=== PATIENT | male | born 1995 | race Caucasian/White ===

== ENCOUNTER 2020-11-26 12:12 | Observation (INO) ==
[2020-11-26 12:46] LABS: Appearance Urine Clear (Clear); Bilirubin Urine Negative (Negative); Blood Urine Negative (Negative); Color Urine Yellow; Glucose Urine UA Negative (Negative); Ketones Urine Trace (Negative); Leukocyte Esterase Urine Negative (Negative); Nitrite Urine Negative (Negative); Protein Urine Negative (Negative); Specific Gravity Urine 1.017 (1.000-1.030); Urobilinogen Urine Negative (Negative); pH Urine 5.5 (4.5-7.5)
--- NOTE | 2020-11-26 12:48 | Emergency Department Note ---
Impression & Plan Anxiety and depression, Tylenol overdose ED Provider Note Provider: Marlon Wu MD DATE OF SERVICE: 11/26/2020 CHIEF COMPLAINT: Overdose HISTORY OF PRESENT ILLNESS: Patient is a 25-year-old gentleman presenting with his mother today reporting that he attempted to harm himself and overdose on Tylenol. Patient states he is a history of anxiety depression and when he was approximately 15 he attempted to commit suicide and overdose. Patient was at the hospital that time and did have psychiatry evaluation. Since then he is not currently having any outpatient psychiatric providers or counselors. Not currently on medications. Patient states has been some stress related to his job as well as his father who has schizophrenia and was recently jailed. Patient states he became very anxious this morning at around 10 to 10:15 AM took between 15 to 25 tablets of extra strength 500 mg Tylenol. States he soon after began to request this and texted his mother who came to assist him. He states he tried to induce vomiting but really was not successful with this. Patient denies vomiting up any of the tablets to his knowledge. Patient denies taking anything else. He denies use of drugs or alcohol today but states he uses marijuana occasionally and did have a beer last night. Patient reports that he is having some pain in the left side of his upper abdomen and lower chest he t hinks some of it may be related to from him retching earlier. He has had a little bit of nausea at times but minimal at this point. Patient denies again taking any other ingestions today or trying to harm self in any other manner. States he does not want to at this time or have liver failure which is why he is here. REVIEW OF SYSTEMS: A total of 10 review of systems was obtained and negative except as stated above in the HPI. 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 NECK: Trachea midline. LUNGS: Airway patent. No retractions. Breath sounds clear with good air entry bilaterally. HEART: Regular rate and rhythm. No chest wall tenderness ABDOMEN: Soft and non-tender, without guarding or rebound. SKIN: Acyanotic, warm, dry, without rashes EXTREMITIES: Without swelling, tenderness or deformity NEUROLOGICAL: No focal deficits. No aphasia. No facial droop or slurred speech. Ambulatory. Psych: Patient reports some anxiety and mild depression at times. Denies suicidal ideation at the current time but states earlier he was feeling this way. Denies any homicidal ideation. EK bpm normal sinus rhythm with sinus arrhythmia. No PVC. No acute ST segment elevation. QTc 388. Patient's laboratory studies and imaging reviewed. Differential includes Mood disorder, infection, hypoglycemia, electrolyte abnormalities, cardiac sources, intracerebral event, toxicologic, trauma, neurologic, as well as other pathologies. IMPRESSION/MEDICAL DECISION MAKING: Patient presents with anxiety depression and intent to harm self by taking Tylenol overdose. Little bit of left upper quadrant pain. I doubt appendicitis, perforation, or cholecystitis. Basic labs obtained. Initial Tylenol and 4-hour postingestion Tylenol was ordered. Will need psychiatric evaluation when medical clear but do have concern given significant amount of Tylenol taken for true Tylenol overdose. Initial blood work is reassuring without liver dysfunction noted. An elevated acetaminophen level is noted however a timed 4-hour level from the time of ingestion to use the Tylenol overdose monogram to determine if treatment is needed. Covid test was negative. Discussed with [facility] case and testing results. They do not recommend NAC as the patient is below the treatment level based on timing of his ingestion and the Tylenol levels. Patient without evidence of liver dysfunction at this time although does have some nausea. Given some Zofran. Continue to have intermittent episod es of some nausea and some mild left upper quadrant tenderness. Given some Pepcid and bit of IV fluid. Given his symptoms feel that medical observation overnight would be appropriate for symptom control and further psychiatric consultation and possible admission once he is stable from the standpoint. Patient is agreeable with this and the hospitalist was contacted. DIAGNOSIS: Intentional attempted Tylenol overdose, anxiety and depression DISPOSITION: Hospitalist will evaluate Patient was agreeable with this plan. Past Med/Surg History Medical History No pertinent past medical history Surgical History No pertinent past surgical history Family History (Updated 11/26/20 @ 17:20 by Annmarie Lujan PA-C) Father Bipolar disorder Schizophrenia Mother Alive and well Social History (Updated 11/26/20 @ 17:21 by Annmarie Lujan PA-C) Smoking Status: Never smoker Hx Alcohol Use: Yes Alcohol type: beer Alcohol Intake Frequency: 2-4 x/Month Hx Substance Use: Yes Non-Prescribed Medications: Marijuana Last Used Substance: Days (ago) Preferred Language: Belizean marital status: Single current occupational status: employed current occupation: [employer] Feels Safe at Home: Yes Allergies Allergies Allergy/AdvReac Type Severity Reaction Status Date / Time amoxicillin Allergy Mild Unknown Verified 11/26/20 12:43 Penicillins Allergy Unknown UNKNOWN Verified 11/26/20 12:43 Home Meds Home Medications Medication Instructions Recorded Confirmed No Known Home Medications 11/26/20 11/26/20 Results & Data (ED) Vital Signs Vital Signs - 24 hr 11/26/20 12:15 11/26/20 14:15 11/26/20 16:15 Temperature 36.5 C Temperature Source Temporal Artery Scan Pulse Rate 109 H Pulse Rate [Finger] 79 80 Pulse Rhythm Regular Pulse Rhythm [Finger] Regular Pulse Strength Normal Pulse Strength [Finger] Respiratory Rate 20 14 18 Respiratory Effort / Characteristics Non-Labored Spontaneous Non-Labored Respiratory Depth Normal Normal Respiratory Pattern Regular Regular Blood Pressure 147/91 H Blood Pressure [Left Arm] 127/67 138/71 Blood Pressure Mean 109 Blood Pressure Mean [Left Arm] 87 93 Blood Pressure Position Sitting Blood Pressure Position [Left Arm] Pulse Oximetry 97 97 97 Oxygen Delivery Method Room Air Room Air Room Air Sepsis Recent Fever Within 48 Hours No Sepsis New/Unexplained Change in Mental Status No Sepsis Action Taken by Nursing No Action Required 11/26/20 18:00 Temperature 36.8 C Temperature Source Oral Pulse Rate Pulse Rate [Finger] 83 Pulse Rhythm Pulse Rhythm [Finger] Regular Pulse Strength Pulse Strength [Finger] Normal Respiratory Rate 17 Respiratory Effort / Characteristics Non-Labored Respiratory Depth Normal Respiratory Pattern Regular Blood Pressure Blood Pressure [Left Arm] 139/72 Blood Pressure Mean Blood Pressure Mean [Left Arm] 94 Blood Pressure Position Blood Pressure Position [Left Arm] Sitting Pulse Oximetry 100 Oxygen Delivery Method Room Air Sepsis Recent Fever Within 48 Hours Sepsis New/Unexplained Change in Mental Status Sepsis Action Taken by Nursing Laboratory Data Result diagrams: 11/26/20 12:05 10/21/21 12:50 Lab Results 11/26/20 11/26/20 11/26/20 Range/Units 12:05 12:30 12:30 WBC 7.10 (4.8-10.8) K/uL RBC 5.20 (4.7-6.1) M/uL Hgb 16.5 (14.0-18.0) g/dL Hct 45.5 (42-52) % MCV 87.5 (80-100) fL MCH 31.7 (25-34) pg MCHC 36.3 H (32-36) g/dL RDW Std Deviation 39.2 (36.4-46.3) fL RDW Coeff of Avani 12.2 (11.5-14.5) % Plt Count 272 (130-400) K/uL MPV 10.0 (7.4-10.4) fL Immature Gran % (Auto) 0.3 % Neut % (Auto) 70.6 % Lymph % (Auto) 22.4 % Prentiss % (Auto) 4.9 % Eos % (Auto) 1.7 % Baso % (Auto) 0.1 % Neut # (Auto) 5.01 (1.4-6.5) K/uL Lymph # (Auto) 1.59 (1.2-3.4) K/uL Prentiss # (Auto) 0.35 (0.11-0.59) K/uL Eos # (Auto) 0.12 (0-0.5) K/uL Baso # (Auto) 0.01 (0-0.2) K/uL Immature Gran # (Auto) 0.02 (0.00-0.02) K/uL PT (9.0-12.0) Seconds INR (0.9-1.1) Sodium (136-145) mmol/L Potassium (3.5-5.1) mmol/L Chloride (98-107) mmol/L Carbon Dioxide (21-32) mmol/L Anion Gap (3-11) BUN (7-18) mg/dl Creatinine (0.6-1.4) mg/dl Est Cr Clr Drug Dosing ml/min Est GFR ( Amer) ml/min Est GFR (Non-Af Amer) ml/min BUN/Creatinine Ratio (10-20) Glucose (70-99) mg/dl Calcium (8.5-10.1) mg/dl Total Bilirubin (0.2-1) mg/dl AST (15-37) U/L ALT (12-78) U/L Alkaline Phosphatase (45-117) U/L Total Creatine Kinase (39-308) U/L Total Protein (6.4-8.2) gm/dl Albumin (3.4-5.0) gm/dl Globulin (2.5-4.0) gm/dl Albumin/Globulin Ratio (0.9-2) TSH (0.300-4.500) uIu/ml Urine Color Yellow Urine Appearance Clear (Clear) Urine pH 5.5 (4.5-7.5) Ur Specific Eugene 1.017 (1.000-1.030) Urine Protein Negative (Negative) Urine Glucose (UA) Negative (Negative) Urine Ketones Trace H (Negative) Urine Blood Negative (Negative) Urine Nitrite Negative (Negative) Urine Bilirubin Negative (Negative) Urine Urobilinogen Negative (Negative) Ur Leukocyte Esterase Negative (Negative) Salicylates (2.8-20) mg/dl Urine Opiates Screen Neg (Neg) Ur Methadone, Qual Neg (Neg) Acetaminophen (10-30) ug/ml Urine Barbiturates Neg (Neg) Ur Phencyclidine (PCP) Neg (Neg) U Amphetamin/Meth Scrn Neg (Neg) MDMA (Ecstasy) Screen Neg (Neg) U Benzodiazepines Scrn Neg (Neg) Ur Cocaine Metabolite Neg (Neg) U Marijuana (THC) Screen Pos H (Neg) Ethyl Alcohol mg/dL (0-3) mg/dl COVID-19 Eval Order SARS-CoV-2 (PCR) (Negative) 11/26/20 11/26/20 11/26/20 Range/Units 12:50 12:50 13:05 WBC (4.8-10.8) K/uL RBC (4.7-6.1) M/uL Hgb (14.0-18.0) g/dL Hct (42-52) % MCV (80-100) fL MCH (25-34) pg MCHC (32-36) g/dL RDW Std Deviation (36.4-46.3) fL RDW Coeff of Avani (11.5-14.5) % Plt Count (130-400) K/uL MPV (7.4-10.4) fL Immature Gran % (Auto) % Neut % (Auto) % Lymph % (Auto) % Prentiss % (Auto) % Eos % (Auto) % Baso % (Auto) % Neut # (Auto) (1.4-6.5) K/uL Lymph # (Auto) (1.2-3.4) K/uL Prentiss # (Auto) (0.11-0.59) K/uL Eos # (Auto) (0-0.5) K/uL Baso # (Auto) (0-0.2) K/uL Immature Gran # (Auto) (0.00-0.02) K/uL PT (9.0-12.0) Seconds INR (0.9-1.1) Sodium 137 (136-145) mmol/L Potassium 3.8 (3.5-5.1) mmol/L Chloride 106 (98-107) mmol/L Carbon Dioxide 24 (21-32) mmol/L Anion Gap 7.0 (3-11) BUN 14 (7-18) mg/dl Creatinine 1.03 (0.6-1.4) mg/dl Est Cr Clr Drug Dosing 129.7 ml/min Est GFR ( Amer) 118.1 ml/min Est GFR (Non-Af Amer) 101.9 ml/min BUN/Creatinine Ratio 13.2 (10-20) Glucose 111 H (70-99) mg/dl Calcium 9.4 (8.5-10.1) mg/dl Total Bilirubin 1.0 (0.2-1) mg/dl AST 17 (15-37) U/L ALT 36 (12-78) U/L Alkaline Phosphatase 54 (45-117) U/L Total Creatine Kinase 87 (39-308) U/L Total Protein 7.7 (6.4-8.2) gm/dl Albumin 4.4 (3.4-5.0) gm/dl Globulin 3.3 (2.5-4.0) gm/dl Albumin/Globulin Ratio 1.3 (0.9-2) TSH 0.413 (0.300-4.500) uIu/ml Urine Color Urine Appearance (Clear) Urine pH (4.5-7.5) Ur Specific Eugene (1.000-1.030) Urine Protein (Negative) Urine Glucose (UA) (Negative) Urine Ketones (Negative) Urine Blood (Negative) Urine Nitrite (Negative) Urine Bilirubin (Negative) Urine Urobilinogen (Negative) Ur Leukocyte Esterase (Negative) Salicylates 2.4 L (2.8-20) mg/dl Urine Opiates Screen (Neg) Ur Methadone, Qual (Neg) Acetaminophen 59 H (10-30) ug/ml Urine Barbiturates (Neg) Ur Phencyclidine (PCP) (Neg) U Amphetamin/Meth Scrn (Neg) MDMA (Ecstasy) Screen (Neg) U Benzodiazepines Scrn (Neg) Ur Cocaine Metabolite (Neg) U Marijuana (THC) Screen (Neg) Ethyl Alcohol mg/dL (0-3) mg/dl COVID-19 Eval Order Covid19 at [facility] SARS-CoV-2 (PCR) (Negative) 11/26/20 11/26/20 11/26/20 Range/Units 13:05 13:06 14:15 WBC (4.8-10.8) K/uL RBC (4.7-6.1) M/uL Hgb (14.0-18.0) g/dL Hct (42-52) % MCV (80-100) fL MCH (25-34) pg MCHC (32-36) g/dL RDW Std Deviation (36.4-46.3) fL RDW Coeff of Avani (11.5-14.5) % Plt Count (130-400) K/uL MPV (7.4-10.4) fL Immature Gran % (Auto) % Neut % (Auto) % Lymph % (Auto) % Prentiss % (Auto) % Eos % (Auto) % Baso % (Auto) % Neut # (Auto) (1.4-6.5) K/uL Lymph # (Auto) (1.2-3.4) K/uL Prentiss # (Auto) (0.11-0.59) K/uL Eos # (Auto) (0-0.5) K/uL Baso # (Auto) (0-0.2) K/uL Immature Gran # (Auto) (0.00-0.02) K/uL PT 10.8 (9.0-12.0) Seconds INR 1.1 (0.9-1.1) Sodium (136-145) mmol/L Potassium (3.5-5.1) mmol/L Chloride (98-107) mmol/L Carbon Dioxide (21-32) mmol/L Anion Gap (3-11) BUN (7-18) mg/dl Creatinine (0.6-1.4) mg/dl Est Cr Clr Drug Dosing ml/min Est GFR ( Amer) ml/min Est GFR (Non-Af Amer) ml/min BUN/Creatinine Ratio (10-20) Glucose (70-99) mg/dl Calcium (8.5-10.1) mg/dl Total Bilirubin (0.2-1) mg/dl AST (15-37) U/L ALT (12-78) U/L Alkaline Phosphatase (45-117) U/L Total Creatine Kinase (39-308) U/L Total Protein (6.4-8.2) gm/dl Albumin (3.4-5.0) gm/dl Globulin (2.5-4.0) gm/dl Albumin/Globulin Ratio (0.9-2) TSH (0.300-4.500) uIu/ml Urine Color Urine Appearance (Clear) Urine pH (4.5-7.5) Ur Specific Eugene (1.000-1.030) Urine Protein (Negative) Urine Glucose (UA) (Negative) Urine Ketones (Negative) Urine Blood (Negative) Urine Nitrite (Negative) Urine Bilirubin (Negative) Urine Urobilinogen (Negative) Ur Leukocyte Esterase (Negative) Salicylates (2.8-20) mg/dl Urine Opiates Screen (Neg) Ur Methadone, Qual (Neg) Acetaminophen (10-30) ug/ml Urine Barbiturates (Neg) Ur Phencyclidine (PCP) (Neg) U Amphetamin/Meth Scrn (Neg) MDMA (Ecstasy) Screen (Neg) U Benzodiazepines Scrn (Neg) Ur Cocaine Metabolite (Neg) U Marijuana (THC) Screen (Neg) Ethyl Alcohol mg/dL < 3.0 (0-3) mg/dl COVID-19 Eval Order SARS-CoV-2 (PCR) NEGATIVE (Negative) 11/26/20 Range/Units 14:15 WBC (4.8-10.8) K/uL RBC (4.7-6.1) M/uL Hgb (14.0-18.0) g/dL Hct (42-52) % MCV (80-100) fL MCH (25-34) pg MCHC (32-36) g/dL RDW Std Deviation (36.4-46.3) fL RDW Coeff of Avani (11.5-14.5) % Plt Count (130-400) K/uL MPV (7.4-10.4) fL Immature Gran % (Auto) % Neut % (Auto) % Lymph % (Auto) % Prentiss % (Auto) % Eos % (Auto) % Baso % (Auto) % Neut # (Auto) (1.4-6.5) K/uL Lymph # (Auto) (1.2-3.4) K/uL Prentiss # (Auto) (0.11-0.59) K/uL Eos # (Auto) (0-0.5) K/uL Baso # (Auto) (0-0.2) K/uL Immature Gran # (Auto) (0.00-0.02) K/uL PT (9.0-12.0) Seconds INR (0.9-1.1) Sodium (136-145) mmol/L Potassium (3.5-5.1) mmol/L Chloride (98-107) mmol/L Carbon Dioxide (21-32) mmol/L Anion Gap (3-11) BUN (7-18) mg/dl Creatinine (0.6-1.4) mg/dl Est Cr Clr Drug Dosing ml/min Est GFR ( Amer) ml/min Est GFR (Non-Af Amer) ml/min BUN/Creatinine Ratio (10-20) Glucose (70-99) mg/dl Calcium (8.5-10.1) mg/dl Total Bilirubin (0.2-1) mg/dl AST (15-37) U/L ALT (12-78) U/L Alkaline Phosphatase (45-117) U/L Total Creatine Kinase (39-308) U/L Total Protein (6.4-8.2) gm/dl Albumin (3.4-5.0) gm/dl Globulin (2.5-4.0) gm/dl Albumin/Globulin Ratio (0.9-2) TSH (0.300-4.500) uIu/ml Urine Color Urine Appearance (Clear) Urine pH (4.5-7.5) Ur Specific Eugene (1.000-1.030) Urine Protein (Negative) Urine Glucose (UA) (Negative) Urine Ketones (Negative) Urine Blood (Negative) Urine Nitrite (Negative) Urine Bilirubin (Negative) Urine Urobilinogen (Negative) Ur Leukocyte Esterase (Negative) Salicylates (2.8-20) mg/dl Urine Opiates Screen (Neg) Ur Methadone, Qual (Neg) Acetaminophen 40 H (10-30) ug/ml Urine Barbiturates (Neg) Ur Phencyclidine (PCP) (Neg) U Amphetamin/Meth Scrn (Neg) MDMA (Ecstasy) Screen (Neg) U Benzodiazepines Scrn (Neg) Ur Cocaine Metabolite (Neg) U Marijuana (THC) Screen (Neg) Ethyl Alcohol mg/dL (0-3) mg/dl COVID-19 Eval Order SARS-CoV-2 (PCR) (Negative) Administered Medications Discontinued Medications Lactated Ringer's (Lr) 1,000 mls @ 999 mls/hr IV .[id number] ONE Stop: 11/26/20 17:36 Last Infusion: 11/26/20 18:09 Dose: 0 mls/hr Documented by: [id number] Admin: 11/26/20 16:38 Dose: 999 mls/hr Documented by: [id number] Famotidine (Pepcid 20mg Iv Push) 20 mg in 5 mls @ 2.5 mls/min IV NOW STA Stop: 11/26/20 16:38 Last Admin: 11/26/20 16:40 Dose: 2.5 mls/min Documented by: [id number] Ondansetron HCl (Ondansetron Inj 2 Mg/Ml 2 Ml Vial) 4 mg IV NOW STA Stop: 11/26/20 14:57 Last Admin: 11/26/20 15:18 Dose: 4 mg Documented by: [id number] Discharge Plan Visit Data Chief Complaint: Overdose (Intentional) Stated Complaint: TOOK 15-20 TYLENOL TOOK ON PURPOSE ED Provider: Marlon Wu Discharge Problem: Anxiety and depression, Tylenol overdose Patient Disposition: Admitted As Inpatient Discharge Instructions Interventions: ED Discharge Assessment Last Done: 11/26/20 18:17 Forms Stand Alone Forms: [facility], Suicide Prevention Resources Prescriptions Prescriptions: No Action No Known Home Medications RF: 0 Referrals Referrals: Miguel Horton MD [Primary Care Provider] - Discharge Problem: Tylenol overdose Qualifiers: Encounter type: initial encounter Injury intent: intentional self-harm Qualified Code(s): T39.1X2A - Poisoning by 4-Aminophenol derivatives, intentional self-harm, initial encounter
[2020-11-26 13:15] LABS: Basophils # (auto) 0.01 K/uL (0-0.2); Basophils % (auto) 0.1 %; Eosinophils # (auto) 0.12 K/uL (0-0.5); Eosinophils % (auto) 1.7 %; Hematocrit (blood only) 45.5 % (42-52); Hemoglobin 16.5 g/dL (14.0-18.0); Immature Granulocytes # (auto) 0.02 K/uL (0.00-0.02); Immature Granulocytes % (auto) 0.3 %; Lymphocytes # (auto) 1.59 K/uL (1.2-3.4); Lymphocytes % (auto) 22.4 %; Mean Corpuscular Hemoglobin 31.7 pg (25-34); Mean Corpuscular Hgb Conc 36.3 g/dL (32-36); Mean Corpuscular Volume 87.5 fL (80-100); Monocytes # (auto) 0.35 K/uL (0.11-0.59); Monocytes % (auto) 4.9 %; Neutrophils # (auto) 5.01 K/uL (1.4-6.5); Neutrophils % (auto) 70.6 %; Platelet Count 272 K/uL (130-400); RDW Coefficient of Variation 12.2 % (11.5-14.5); RDW Standard Deviation 39.2 fL (36.4-46.3)
[2020-11-26 13:17] LABS: Amphetamines+Metham, Urine Neg (Neg); Barbiturates, Urine Neg (Neg); Benzodiazepine, Urine Neg (Neg); Cocaine, Urine Neg (Neg); MDMA (Ecstacy), Urine Neg (Neg); Methadone, Urine Neg (Neg); Opiate, Urine Neg (Neg); Phencyclidine, Urine Neg (Neg)
[2020-11-26 13:33] LABS: Albumin Level 4.4 gm/dl (3.4-5.0); BUN Creatinine Ratio 13.2 (10-20); Calcium 9.4 mg/dl (8.5-10.1); Creatinine Clr Calc Pharmacy 129.7 ml/min; Est GFR (African American) 118.1 ml/min; Est GFR (Non-African American) 101.9 ml/min; Potassium 3.8 mmol/L (3.5-5.1)
[2020-11-26 13:36] LABS: Salicylate 2.4 mg/dl (2.8-20)
[2020-11-26 13:49] LABS: Albumin Globulin Ratio 1.3 (0.9-2); Globulin 3.3 gm/dl (2.5-4.0); Thyroid Stimulating Hormone 0.413 uIu/ml (0.300-4.500); Total Protein 7.7 gm/dl (6.4-8.2)
[2020-11-26 14:37] LABS: INR 1.1 (0.9-1.1); Prothrombin Time 10.8 Seconds (9.0-12.0)
[2020-11-26] MEDS ORDERED: ONDANSETRON INJ 2 MG/ML 2 ML VIAL IV STA (14:56)
--- NOTE | 2020-11-26 15:26 | Electrocardiogram Report ---
Test Reason : Blood Pressure : / mmHG Vent. Rate : 074 BPM Atrial Rate : 074 BPM P-R Int : 118 ms QRS Dur : 094 ms QT Int : 350 ms P-R-T Axes : -02 062 018 degrees QTc Int : 388 ms Normal sinus rhythm with sinus arrhythmia Normal ECG When compared with ECG of 29-AUG-2012 21:32, No significant change Confirmed by Sterling Gallagher ([id number]) on 11/26/2020 3:26:16 PM Referred By: REFERRED SELF Confirmed By:Sterling Gallagher
[2020-11-26] MEDS ORDERED: LACTATED RINGER'S 1,000 ML IV ONE (16:36)
[2020-11-26] MEDS ORDERED: ONDANSETRON INJ 2 MG/ML 2 ML VIAL IV PRN ×2 (16:36→19:10)
[2020-11-26] MEDS ORDERED: FAMOTIDINE 20MG IV PUSH 20 MG/5 ML SYR IV STA (16:37)
--- NOTE | 2020-11-26 17:26 | History & Physical Report ---
Date of Service November 26, 2020 Assessment & Plan (1) Tylenol overdose: (2) Anxiety and depression: (3) PTSD (post-traumatic stress disorder): Plan: This is a 25-year-old male who is medically otherwise healthy who has anxiety, depression and PTSD who presented to ER after ingesting 15-20 extra strength Tylenol tablets in the form of trying to harm self due to anxiety over her father who is a schizophrenic and is to be incarcerated. Case was discussed with poison control and ED provider Dr. Wu. 4-hour acetaminophen level was 40, LFTs WNL and it was felt that NAC was not required at this time. Admit to med telemetry Gentle IV hydration at 115 cc/h times additional 2 L IV Pepcid 20 mg twice daily LFTs in a.m. Suicide precautions One-to-one Consult psychiatry Currently patient denies intent to harm self or others, previous hospitalization at age 15 secondary to suicide attempt Does not follow with outpatient psychiatrist and is currently not on any prescription medications, which is a follow with outpatient counselor DVT prophylaxis: Not required given age, encourage ambulation Dispo: Med telemetry, will need psych evaluation to determine need for further treatment Full code PCP: Clifford Patient was seen and examined in collaboration with Dr. Allen, please see addendum History of Present Illness Chief Complaint: Ingestion of 15-20 Tylenol tablets prior to arrival. Primary Care Provider: Miguel Horton MD This is a 25-year-old male who has significant history of depression, anxiety, PTSD who presents to ED secondary to ingestion of 15-20 extra strength Tylenol tablets prior to arrival. This occurred at approximately 10 to 10:15 AM. He states he has dealt with anxiety his whole life secondary to his father being schizophrenia. His father recently is going to be incarcerated and has also been saying he wishes to . This has made the patient extremely anxious and today he developed impulsive behavior and ingested Tylenol. At that time he did admit to wanting to hurt himself to make his anxiety go away, but currently denies any suicidal thoughts. He denies ever having this happen in the past. He did have a prior suicide attempt at 15. He does not take any medications for antidepressants but wishes to establish with psychologist for therapy as an outpatient. Currently he has abdominal pain 6/10 and mild nausea. He did have one episode of vomiting in ED. He was hoping after taking Tylenol he would be able to make himself vomit to prevent himself him coming to the ER. He denies any recent illness, fever, chills, sweats, lightheadedness, dizziness, chest pain, shortness breath, cough, URI symptoms, change in bowel or urinary habits. He does admit to smoking marijuana, last use yesterday. He does not do any other street drugs. He does drink alcohol occasionally, 2-4 times a month. 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 At this current time he denies any suicidal or homicidal ideations. In ED patient remained hemodynamically stable. His LFTs were unremarkable. He did have elevated acetaminophen level at 40. He also tested positive for marijuana. ED provider Dr. Payne spoke with poison control and felt that NAC was not required. It is recommended he be admitted to hospital for further observation, IV hydration, antiemetics and repeat of LFTs. Allergies Allergy/AdvReac Type Severity Reaction Status Date / Time amoxicillin Allergy Mild Unknown Verified 11/26/20 12:43 Penicillins Allergy Unknown UNKNOWN Verified 11/26/20 12:43 Home Medications Medication Instructions Recorded Confirmed Type No Known Home Medications 11/26/20 11/28/20 History hydroxyzine HCl 25 mg tablet 25 mg PO Q4H PRN #30 tab 11/30/20 Rx Past Med/Surg History Medical History (Updated 11/27/20 @ 16:23 by Ruby Shelby MD) MDD (major depressive disorder), recurrent episode No pertinent past medical history Surgical History No pertinent past surgical history Family History Father Bipolar disorder Schizophrenia Mother Alive and well Social History Smoking Status: Former smoker Second Hand Exposure: No; Hx Alcohol Use: Yes Alcohol type: beer Alcohol Intake Frequency: 2-4 x/Month Hx Substance Use: Yes Non-Prescribed Medications: Marijuana Last Used Substance: Unknown Preferred Language: Tunisian Communication Ability: Effective Reinforcing Steel Placer Required: No Beliefs That Will Affect Care: None marital status: Single Current Living Situation: Family current occupational status: employed current occupation: [employer] Feels Safe at Home: Yes Assistive Devices: None Review of Systems Review of Systems: All systems reviewed & are unremarkable except as noted in HPI & below Physical Exam Physical Exam: Constitutional: WD/WN, vitals as above, NAD, sitting up in bed, pleasant, conversing easily Head: Normocephalic, Atraumatic Eyes: PERRL, conjunctivae normal, anicteric sclerae ENMT: external ear and nose normal, oropharynx normal Neck: trachea midline, no thyromegaly normal visual inspection Respiratory: normal respiratory effort, lungs clear to auscultation, no wheeze, rales, rhonchi. Normal insp/exp effort, no accessory muscle use Cardiovascular: RRR, no murmur, no edema Vessels: no JVD or carotid bruit Chest: normal inspection of chest Abdomen: normal bowel sounds, soft, nontender, no hepatosplenomegaly Musculoskeletal: no cyanosis or clubbing, extremities motor strength 5/5 Skin: no rashes, warm and dry normal turgor Neurologic: PERRL, EOMI, accommodation nl, no face palsy, no dysarthria CN's II-XI intact bilaterally and moves all extremities Psychiatric: A+Ox3, euthymic affect Lymphatic: no cervical or axillary lymphadenopathy : deferred Results & Data Results & Data ([facility]) Vital Signs (Past 12 Hours) Vital Signs Temp Pulse Pulse Resp BP BP Pulse Ox 11/26/20 16:15 80 18 138/71 97 11/26/20 14:15 79 14 127/67 97 11/26/20 12:15 36.5 C 109 H 20 147/91 H 97 Medications Administered Medication List Lactated Ringer's (Lr) 1,000 mls @ 999 mls/hr IV .Q1H1M ONE Stop: 11/26/20 17:36 Last Admin: 11/26/20 16:38 Dose: 999 mls/hr Documented by: [id number] Discontinued Medications Famotidine (Pepcid 20mg Iv Push) 20 mg in 5 mls @ 2.5 mls/min IV NOW STA Stop: 11/26/20 16:38 Last Admin: 11/26/20 16:40 Dose: 2.5 mls/min Documented by: [id number] Ondansetron HCl (Ondansetron Inj 2 Mg/Ml 2 Ml Vial) 4 mg IV NOW STA Stop: 11/26/20 14:57 Last Admin: 11/26/20 15:18 Dose: 4 mg Documented by: [id number] ECG Rate (beats per minute): 74 Rhythm: normal sinus and sinus with SA COVID-19 Results Results COVID-19 Adm Lab Results: RBC 4.80 M/uL (4.7-6.1) 11/27/20 WBC 9.75 K/uL (4.8-10.8) 11/27/20 Hgb 15.1 g/dL (14.0-18.0) 11/27/20 Hct 43.0 % (42-52) 11/27/20 Plt Count 244 K/uL (130-400) 11/27/20 Neutrophils (%) (Auto) 70.6 % 11/26/20 Lymphocytes (%) (Auto) 22.4 % 11/26/20 Monocytes # (Auto) 0.35 K/uL (0.11-0.59) 11/26/20 Eosinophils # (Auto) 0.12 K/uL (0-0.5) 11/26/20 Immature Granulocyte % (Auto) 0.3 % 11/26/20 Neutrophils # (Auto) 5.01 K/uL (1.4-6.5) 11/26/20 Lymphocytes # (Auto) 1.59 K/uL (1.2-3.4) 11/26/20 Monocytes # (Auto) 0.35 K/uL (0.11-0.59) 11/26/20 Eosinophils # (Auto) 0.12 K/uL (0-0.5) 11/26/20 Basophils # (Auto) 0.01 K/uL (0-0.2) 11/26/20 Immature Granulocyte # (Auto) 0.02 K/uL (0.00-0.02) 11/26/20 Na 138 mmol/L (136-145) 11/27/20 K 3.6 mmol/L (3.5-5.1) 11/27/20 Cl 109 mmol/L (98-107) H 11/27/20 CO2 24 mmol/L (21-32) 11/27/20 Anion Gap 5.0 (3-11) 11/27/20 BUN 12 mg/dl (7-18) 11/27/20 Creatinine 0.99 mg/dl (0.6-1.4) 11/27/20 BUN/Creatinine Ratio 12.2 (10-20) 11/27/20 Glucose Level 71 mg/dl (70-99) 11/27/20 Ca 8.3 mg/dl (8.5-10.1) L 11/27/20 Total Bilirubin 0.9 mg/dl (0.2-1) 11/27/20 AST/SGOT 14 U/L (15-37) L 11/27/20 ALT/SGPT 31 U/L (12-78) 11/27/20 Alkaline Phosphatase 46 U/L (45-117) 11/27/20 Total Protein 6.5 gm/dl (6.4-8.2) 11/27/20 Albumin 3.5 gm/dl (3.4-5.0) 11/27/20 Globulin 3.0 gm/dl (2.5-4.0) 11/27/20 Albumin/Globulin Ratio 1.2 (0.9-2) 11/27/20 Total CK 87 U/L (39-308) 11/26/20 INR 1.1 (0.9-1.1) 11/26/20 COVID-19 PCR NEGATIVE (Negative) 11/26/20 Code Status & VTE Plan Code Status Full Code VTE Prophylaxis Plan VTE Prophylaxis will be ordered: No Supervising Physician Co-Signing Physician Notes Intentional Tylenol overdose History of posttraumatic stress disorder History of anxiety Patient presents with overdose of Tylenol. Hemodynamically patient is doing okay. He of system is mainly negative. Continue to trend daily LFTs. Dietary services have been ordered. Continue with one-to-one sitter at bedside. Patient on maintenance IV fluids. I performed a history and physical examination of the patient on 11/26/20, including specifically H&P. I have discussed the patient's management with the advanced practitioner. Please refer to the Annmarie Lujan note for the documented findings and plan of care. (1) Tylenol overdose Encounter type: initial encounter Injury intent: intentional self-harm Qualified Code(s): T39.1X2A - Poisoning by 4-Aminophenol derivatives, intentional self-harm, initial encounter
[2020-11-26] MEDS ORDERED: IBUPROFEN 600 MG TAB PO PRN (19:10)
[2020-11-26] MEDS ORDERED: ALUMINUM/MAGNESIUM SUSP 30 ML UDC PO PRN (19:10)
[2020-11-26] MEDS ORDERED: MAGNESIUM HYDROXIDE SUSP 30 ML UDC PO PRN (19:10)
[2020-11-26] MEDS ORDERED: POLYETHYLENE (MIRALAX) 17 GM PACK PO PRN (19:10)
[2020-11-26] MEDS: SODIUM CHLORIDE 0.9% 1000ML 1,000 ML IV SCH (19:30)
[2020-11-26] MEDS: FAMOTIDINE 20 MG in SYRINGE 3 ML IV SCH (20:33)
[2020-11-27] MEDS: SODIUM CHLORIDE 0.9% 1000ML 1,000 ML IV SCH (03:30)
[2020-11-27 07:02] LABS: Hemoglobin 15.1 g/dL (14.0-18.0); Mean Corpuscular Hemoglobin 31.5 pg (25-34); Mean Corpuscular Hgb Conc 35.1 g/dL (32-36); Mean Corpuscular Volume 89.6 fL (80-100); Mean Platelet Volume 10.2 fL (7.4-10.4); Platelet Count 244 K/uL (130-400); RDW Coefficient of Variation 12.5 % (11.5-14.5); RDW Standard Deviation 40.7 fL (36.4-46.3); White Blood Count 9.75 K/uL (4.8-10.8)
[2020-11-27 07:08] LABS: Albumin Level 3.5 gm/dl (3.4-5.0); BUN Creatinine Ratio 12.2 (10-20); Calcium 8.3 mg/dl (8.5-10.1); Creatinine Clr Calc Pharmacy 134.9 ml/min; Est GFR (African American) 123.9 ml/min; Est GFR (Non-African American) 106.9 ml/min; Potassium 3.6 mmol/L (3.5-5.1)
[2020-11-27 07:11] LABS: Albumin Globulin Ratio 1.2 (0.9-2); Bilirubin,Total 0.9 mg/dl (0.2-1); Total Protein 6.5 gm/dl (6.4-8.2)
[2020-11-27] MEDS: FAMOTIDINE 20 MG in SYRINGE 3 ML IV SCH (08:14)
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
--- NOTE | 2020-11-27 11:53 | Communication Note ---
Date of Service: November 27, 2020 Patient seen for consult. Requires inpatient psychiatric care. Being admitted to [facility].
[2020-11-27] MEDS ORDERED: ALPRAZolam 0.5 MG TABLET PO STA (13:50)
[2020-11-29 08:22] LABS: Marijuana Quant, GCMS Urine 329 ng/mL (<5)
== END 2020-11-27 14:29 ==
LOC: 2W 12:12 → ED 12:12 → SUATTDRO 16:46 → 2W 18:17

== ENCOUNTER 2020-11-27 11:38 | Inpatient (IN) ==
[2020-11-27] MEDS ORDERED: SODIUM CHLORIDE 0.65% NA SOLN 45 ML (OCEAN) PRN (11:46)
[2020-11-27] MEDS ORDERED: MAGNESIUM HYDROXIDE SUSP 30 ML UDC PO PRN (11:46)
[2020-11-27] MEDS ORDERED: ALUMINUM/MAGNESIUM SUSP 30 ML UDC PO PRN (11:46)
[2020-11-27] MEDS ORDERED: BISMUTH SUBSALICYLATE LIQD 236 ML PO PRN (11:46)
[2020-11-27] MEDS ORDERED: ACETAMINOPHEN 325 MG TAB PO PRN (11:46)
[2020-11-27] MEDS ORDERED: hydrOXYzine HCl 25 MG TAB PO PRN ×2 (11:46)
--- NOTE | 2020-11-27 16:02 | History & Physical ---
Date of Service November 27, 2020 Impression / Recommendations Impression The patient is a 25 year old with a history of depression, anxiety, suicide attempt who was admitted for suicide attempt via acetaminophen ingestion. The patient is deemed unstable and requires psychiatric hospitalization for diagnostic clarification, safety and stabilization, medication management and development of further coping skills. He is at high acute risk given suicide attempt with lethal potential, hx prior suicide attempt, fam history of psychiatric disorders, major depression, anxiety with panic attacks, significant social/financial stressors and no outpatient psychiatrist or therapist nor medic al insurance to easily establish these services on his own. Diagnostically consistent with MDD and DUSTY with panic attacks. He would benefit from initiation of an SSRI (tried sertraline in the past and didn't like it) either fluoxetine or escitalopram or consideration for Wellbutrin but at this time he would prefer to avoid starting any medication. Discussed goals of establishing outpatient care, safety planning, family meeting, and working on development of coping skills. (1) MDD (major depressive disorder), recurrent episode: (2) Generalized anxiety disorder with panic attacks: (3) Tylenol overdose: Encounter type: initial encounter Injury intent: intentional self-harm Qualified Code(s): T39.1X2A - Poisoning by 4-Aminophenol derivatives, intentional self-harm, initial encounter 11/27/20--The patient was admitted to the [facility] ([facility] mental health unit) on q15 min checks (behavioral with suicide precautions) for safety. The patient will participate in group, recreational, and milieu therapies and will be offered additional individual and family sessions as clinically appropriate. At this point he would prefer not to start any medication but has found atarax helpful in the past so discussed that this was available as prn if he wishes to take it which he consented to. Risk Factors Assessment Do You Have Access To A Gun?: No Psychiatric History Identifying Data DIDI YARBROUGH is a 25-year-old man who currently lives with his mother, has a history of depression, anxiety, one prior suicide attempt and two prior psychiatric hospitalizations, and was admitted on 11/27/20 11:46 on a 302 involuntary commitment for depression, anxiety and suicide attempt via intentional overdose of acetaminophen. Chief Complaint "I didn't want to do anything anymore". History of Present Illness Didi Yarbrough (JC) presents for admission following an intentional ingestion of 15-20 acetaminophen pills. This occurred in the context of chronic depression with recent worsening of anxiety and panic in the setting of psychosocial stressors including his father being incarcerated, financial stress of helping to support his mother and increased demands and pressure at work. He felt with e verything going on, especially his stress from work, that he didn't want to be alive anymore and began thinking about SI the day prior to his attempt. After taking the acetaminophen with the intent to , he was "headbutted" by his cat and this "snapped me out of it" and he then attempted to throw up and when he couldn't throw up enough of the pills he sought emergency care. He did not require NAC but was monitored overnight on the medical floor. I initially met BERNIE on the medical service for a consult. He reports a long history of chronic depression and anxiety that comes and goes. He currently has no outpatient services but is willing to consider therapy. He reports he is regretful of the attempt and wants to be alive. He feels "homesick" and wishes he could return home. He felt that his attempt showed him that people care for him and that he needs to set better boundaries with his work. We discussed the challenge of him not having any outpatient services currently and that his risk factors and stressors leading to his suicide attempt had not changed. He remained hopeful that he would be allowed to leave and was very frustrated with the process of then becoming a 302 status when he would not agree to be admitted on a 201, requesting more time to discuss options and try to set up an outpatient plan. He was initially tearful on arriving to the unit but then maintained that he wished he could leave and that being here for psychiatric treatment is unlikely to be helpful and rather he feels that not having time off at home before he restarts work on Monday will be detrimental. Discussed his goals for a brief admission and establish outpatient therapy and have family meeting. Psychiatric ROS notable for no hx of rupali, no hx psychosis, no significant substance use, hx of SI, no hx self-harm. Past Psychiatric History Previous Psych History: depression, anxiety Outpatient Services: none Previous Psych Admissions: at age 15 at the [facility] following suicide attempt via ingestion of oxycotin, and at age 17 at [facility] for depression and SI. Do You Have Access To A Gun?: No History of Previous Suicide Attempt: Yes Past Medication Trials: atarax-found helpful for sleep and anxiety, sertraline- he feels taking a daily medication makes his mood worse Allergies Allergy/AdvReac Type Severity Reaction Status Date / Time amoxicillin Allergy Mild Unknown Verified 11/26/20 12:43 Penicillins Allergy Unknown UNKNOWN Verified 11/26/20 12:43 Home Medications Medication Instructions Recorded Confirmed Type No Known Home Medications 11/26/20 11/26/20 History Family History Family History of: Psychosis/ThoughtDisorder (father with schizophrenia) and Bipolar (maternal aunt) Alcohol History Hx of Alcohol Use Over the Past 12 Months: Yes (very occassional use-1-2 drinks a few times a month) Smoking Use Smoking Status: Former smoker Substance History will use marijuana a few times a month socially Personal History Living Arrangements: Apartment (with his mother, also spends time with his gf at her apartment) 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 Beliefs That Will Affect Care: None Current Legal Problems: No Hx Legal Problems: No Hx Traumatic Life Events: No Patient History Medical History (Updated 11/27/20 @ 16:23 by Ruby Shelby MD) MDD (major depressive disorder), recurrent episode No pertinent past medical history Surgical History No pertinent past surgical history Family History Father Bipolar disorder Schizophrenia Mother Alive and well Social History Smoking Status: Former smoker Second Hand Exposure: No; Hx Alcohol Use: Yes Alcohol type: beer Alcohol Intake Frequency: 2-4 x/Month Hx Substance Use: Yes Non-Prescribed Medications: Marijuana Last Used Substance: Unknown Preferred Language: [employer] Required: No Beliefs That Will Affect Care: None marital status: Single Current Living Situation: Family current occupational status: employed current occupation: [employer] Feels Safe at Home: Yes Assistive Devices: None Review of Systems Review of Systems: All systems reviewed & are unremarkable except as noted in HPI & below Physical Exam Psychiatric: Orientation: alert and oriented x 3 Apperance: appropriately dressed and appropriately groomed Eye Contact: good eye contact Motor Behavior: steady gait and station and no abnormal motor movements Speech: normal rate/rhythm/volume of speech Affect: + tearful affect Mood: + depressed mood and + anxious mood Thought Process: linear/logical thought process Thought Content: + preoccupation (with not wanting to have inpt tx) Suicidal Thoughts: denies suicidal thoughts Homicidal Thoughts: denies homicidal thoughts Hallucinations: no auditory hallucinations and no visual hallucinations Cognition: recent memory grossly intact, remote memory grossly intact, attention grossly intact and language grossly intact Estimated Intelligence: consistent with education level Insight: + limited insight Judgement: + fair judgement Exam Statement: A physical exam was performed in the medical floor by Dr. Monte for the purposes of medical clearance. I accept that physical as correct and adequate for the purposes of the inpatient physical exam. Results & Data ([facility]) Current Inpatient Medications Current Inpatient Medications: Current Inpatient Medications Acetaminophen (Acetaminophen 325 Mg Tab) 650 mg PO Q4H PRN PRN Reason: Headache or Minor Fever Stop: 12/27/20 11:45 Al Hydrox/Mg Hydrox/Simethicone (Aluminum/Magnesium Susp 30 Ml Udc) 30 ml PO Q4H PRN PRN Reason: GI Upset Stop: 12/27/20 11:45 Bismuth Subsalicylate (Bismuth Subsalicylate Liqd 236 Ml) 15 ml PO PRN PRN PRN Reason: Loose Stool Stop: 12/27/20 11:45 Hydroxyzine HCl (Hydroxyzine Hcl 25 Mg Tab) 50 mg PO HSZ PRN PRN Reason: Insomnia Stop: 12/27/20 11:45 Hydroxyzine HCl (Hydroxyzine Hcl 25 Mg Tab) 25 mg PO Q4H PRN PRN Reason: Anxiety Stop: 12/27/20 11:45 Magnesium Hydroxide (Magnesium Hydroxide Susp 30 Ml Udc) 30 ml PO DAILY PRN PRN Reason: Constipation Stop: 12/27/20 11:45 Sodium Chloride (Sodium Chloride 0.65% Na Soln 45 Ml ([place])) 1 - 2 sprays NA PRN PRN PRN Reason: Nasal Dryness/Congestion Stop: 12/27/20 11:45
[2020-11-27] MEDS ORDERED: FLUARIX QUADRIVALENT 0.5 ML SYR IM ONE (18:51)
[2020-11-28] MEDS ORDERED: IBUPROFEN 600 MG TAB PO PRN (12:02)
--- NOTE | 2020-11-28 15:29 | Psychiatric Progress Note ---
Date of Service November 28, 2020 Impression / Recommendations Impression The patient is a 25 year old with a history of depression, anxiety, suicide attempt who was admitted for suicide attempt via acetaminophen ingestion. Continued inpatient hospitalization is medically necessary for ongoing monitoring and safety. 11/28/20: more cooperative with care (1) MDD (major depressive disorder), recurrent episode: (2) Generalized anxiety disorder with panic attacks: (3) Tylenol overdose: 11/28/20--Reviewed care by Dr. Shelby in italics. Continue prn hydroxyzine and Vistaril. 11/27/20--The patient was admitted to the [facility] ([facility] mental health unit) on q15 min checks (behavioral with suicide precautions) for safety. The patient will participate in group, recreational, and milieu therapies and will be offered additional individual and family sessions as clinically appropriate. At this point he would prefer not to start any medication but has found atarax helpful in the past so discussed that this was available as prn if he wishes to take it which he consented to. Risk Factors Assessment Do You Have Access To A Gun?: No Interval History Identifying Information 25 yo male admit on 302 from med floor s/p Tylenol OD. Chief Complaint "this place is so much better than the place I went when I was a kid". Review of Systems Sleep Information Total Hours of Sleep: 5.5 Meal Information Percent Meal Consumed - Breakfast: 100 Percent Meal Consumed - Lunch: 100 Percent Meal Consumed - Dinner: 100 Subjective Subjective Patient was seen & assessed and interval progress reviewed with nursing and social work. States he doesn't want medication on a daily basis but feels a prn would be helpful. Has taken Vistaril before. Notes some work related stress. Future focussed with regards to seeing his cat and perhaps returning to school. Agreeable to therapy. Physical Exam Psychiatric Orientation: alert and oriented x 3 Apperance: appropriately dressed and appropriately groomed Eye Contact: good eye contact Motor Behavior: steady gait and station and no abnormal motor movements Speech: normal rate/rhythm/volume of speech Mood: + depressed mood and + anxious mood Thought Process: linear/logical thought process Thought Content: reality based without delusions Suicidal Thoughts: denies suicidal thoughts Homicidal Thoughts: denies homicidal thoughts Hallucinations: no auditory hallucinations and no visual hallucinations Cognition: recent memory grossly intact, remote memory grossly intact, attention grossly intact and language grossly intact Estimated Intelligence: consistent with education level Insight: + fair insight Judgement: + fair judgement Vital Signs (Past 24 Hours) Last Vital Signs Temp 36.3 C L 11/28/20 07:17 Pulse 80 11/28/20 07:17 Resp 18 11/28/20 07:17 BP 126/73 11/28/20 07:18 Pulse Ox 98 11/27/20 21:22 Results & Data ([facility]) Current Inpatient Medications Current Inpatient Medications: Current Inpatient Medications Al Hydrox/Mg Hydrox/Simethicone (Aluminum/Magnesium Susp 30 Ml Udc) 30 ml PO Q4H PRN PRN Reason: GI Upset Stop: 12/27/20 11:45 Bismuth Subsalicylate (Bismuth Subsalicylate Liqd 236 Ml) 15 ml PO PRN PRN PRN Reason: Loose Stool Stop: 12/27/20 11:45 Hydroxyzine HCl (Hydroxyzine Hcl 25 Mg Tab) 50 mg PO HSZ PRN PRN Reason: Insomnia Stop: 12/27/20 11:45 Hydroxyzine HCl (Hydroxyzine Hcl 25 Mg Tab) 25 mg PO Q4H PRN PRN Reason: Anxiety Stop: 12/27/20 11:45 Ibuprofen (Ibuprofen 600 Mg Tab) 600 mg PO Q6H PRN PRN Reason: Pain Stop: 12/28/20 12:01 Last Admin: 11/28/20 12:13 Dose: 600 mg Documented by: Magnesium Hydroxide (Magnesium Hydroxide Susp 30 Ml Udc) 30 ml PO DAILY PRN PRN Reason: Constipation Stop: 12/27/20 11:45 Sodium Chloride (Sodium Chloride 0.65% Na Soln 45 Ml ([place])) 1 - 2 sprays NA PRN PRN PRN Reason: Nasal Dryness/Congestion Stop: 12/27/20 11:45 Mental Health & Subst Abuse Tx Therapist Name of Therapist: NA (1) Tylenol overdose Encounter type: initial encounter Injury intent: intentional self-harm Qualified Code(s): T39.1X2A - Poisoning by 4-Aminophenol derivatives, intentional self-harm, initial encounter
--- NOTE | 2020-11-29 17:40 | Psychiatric Progress Note ---
Date of Service November 29, 2020 Impression / Recommendations Impression The patient is a 25 year old with a history of depression, anxiety, suicide attempt who was admitted for suicide attempt via acetaminophen ingestion. 11/29/20: improving (1) MDD (major depressive disorder), recurrent episode: (2) Generalized anxiety disorder with panic attacks: (3) Tylenol overdose: 11/29/20--needs family meeting and aftercare, continue prn hydroxyzine. 11/28/20--Reviewed care by Dr. Shelby in italics. Continue prn hydroxyzine and Vistaril. 11/27/20--The patient was admitted to the [facility] ([facility] mental health unit) on q15 min checks (behavioral with suicide precautions) for safety. The patient will participate in group, recreational, and milieu therapies and will be offered additional individual and family sessions as clinically appropriate. At this point he would prefer not to start any medication but has found atarax helpful in the past so discussed that this was available as prn if he wishes to take it which he consented to. Risk Factors Assessment Do You Have Access To A Gun?: No Interval History Identifying Information 25 yo male admit on 302 from med floor s/p Tylenol OD. Chief Complaint "I miss my cat, I do have anxiety about work". Review of Systems Sleep Information Total Hours of Sleep: 6 Meal Information Percent Meal Consumed - Breakfast: 100 Percent Meal Consumed - Lunch: 100 Percent Meal Consumed - Dinner: 100 Subjective Subjective Patient was seen & assessed and interval progress reviewed with nursing and social work. Remains cooperative with unit routines. Considering his options for when he gets MA. He took vistaril last pm with benefit. Physical Exam Psychiatric Orientation: alert and oriented x 3 Apperance: appropriately dressed and appropriately groomed Eye Contact: good eye contact Motor Behavior: steady gait and station and no abnormal motor movements Speech: normal rate/rhythm/volume of speech Affect: euthymic affect Mood: + anxious mood Thought Process: linear/logical thought process Thought Content: reality based without delusions Suicidal Thoughts: denies suicidal thoughts Homicidal Thoughts: denies homicidal thoughts Hallucinations: no auditory hallucinations and no visual hallucinations Cognition: recent memory grossly intact, remote memory grossly intact, attention grossly intact and language grossly intact Estimated Intelligence: consistent with education level Insight: + fair insight Judgement: + fair judgement Vital Signs (Past 24 Hours) Last Vital Signs Temp 36.9 C 11/29/20 06:55 Pulse 81 11/29/20 06:56 Resp 16 11/29/20 06:55 BP 125/82 11/29/20 06:56 Pulse Ox 98 11/27/20 21:22 Results & Data ([facility]) Current Inpatient Medications Current Inpatient Medications: Current Inpatient Medications Al Hydrox/Mg Hydrox/Simethicone (Aluminum/Magnesium Susp 30 Ml Udc) 30 ml PO Q4H PRN PRN Reason: GI Upset Stop: 12/27/20 11:45 Bismuth Subsalicylate (Bismuth Subsalicylate Liqd 236 Ml) 15 ml PO PRN PRN PRN Reason: Loose Stool Stop: 12/27/20 11:45 Hydroxyzine HCl (Hydroxyzine Hcl 25 Mg Tab) 50 mg PO HSZ PRN PRN Reason: Insomnia Stop: 12/27/20 11:45 Hydroxyzine HCl (Hydroxyzine Hcl 25 Mg Tab) 25 mg PO Q4H PRN PRN Reason: Anxiety Stop: 12/27/20 11:45 Last Admin: 11/28/20 19:38 Dose: 25 mg Documented by: Ibuprofen (Ibuprofen 600 Mg Tab) 600 mg PO Q6H PRN PRN Reason: Pain Stop: 12/28/20 12:01 Last Admin: 11/28/20 12:13 Dose: 600 mg Documented by: Magnesium Hydroxide (Magnesium Hydroxide Susp 30 Ml Udc) 30 ml PO DAILY PRN PRN Reason: Constipation Stop: 12/27/20 11:45 Sodium Chloride (Sodium Chloride 0.65% Na Soln 45 Ml ([place])) 1 - 2 sprays NA PRN PRN PRN Reason: Nasal Dryness/Congestion Stop: 12/27/20 11:45 Mental Health & Subst Abuse Tx Therapist Name of Therapist: RONNI (1) Tylenol overdose Encounter type: initial encounter Injury intent: intentional self-harm Qualified Code(s): T39.1X2A - Poisoning by 4-Aminophenol derivatives, intentional self-harm, initial encounter
--- NOTE | 2020-11-30 06:23 | Discharge Summary ---
Date of Service November 30, 2020 History of Present Illness As per Dr. Shelby on admission: Hardik Yarbrough (JC) presents for admission following an intentional ingestion of 15-20 acetaminophen pills. This occurred in the context of chronic depression with recent worsening of anxiety and panic in the setting of psychosocial stressors including his father being incarcerated, financial stress of helping to support his mother and increased demands and pressure at work. He felt with everything going on, especially his stress from work, that he didn't want to be alive anymore and began thinking about SI the day prior to his attempt. After taking the acetaminophen with the intent to , he was "headbutted" by his cat and this "snapped me out of it" and he then attempted to throw up and when he couldn't throw up enough of the pills he sought emergency care. He did not require NAC but was monitored overnight on the medical floor. I initially met BERNIE on the medical service for a consult. He reports a long history of chronic depression and anxiety that comes and goes. He currently has no outpatient services but is willing to consider therapy. He reports he is regretful of the attempt and wants to be alive. He feels "homesick" and wishes he could return home. He felt that his attempt showed him that people care for him and that he needs to set better boundaries with his work. We discussed the challenge of him not having any outpatient services currently and that his risk factors and stressors leading to his suicide attempt had not changed. He remained hopeful that he would be allowed to leave and was very frustrated with the process of then becoming a 302 status when he would not agree to be admitted on a 201, requesting more time to discuss options and try to set up an outpatient plan. He was initially tearful on arriving to the unit but then maintained that he wished he could leave and that being here for psychiatric treatment is unlikely to be helpful and rather he feels that not having time off at home before he restarts work on Monday will be detrimental. Discussed his goals for a brief admission and establish outpatient therapy and have family meeting. Psychiatric ROS notable for no hx of rupali, no hx psychosis, no significant substance use, hx of SI, no hx self-harm. Physical Exam Psychiatric See admission H&P and DOD summary. Vital Signs (Past 24 Hours) Last Vital Signs Temp 37.2 C 11/29/20 21:45 Pulse 81 11/29/20 06:56 Resp 16 11/29/20 06:55 BP 125/82 11/29/20 06:56 Pulse Ox 98 11/27/20 21:22 Principal Diagnosis Major depressive disorder with anxious distress Psychiatric Data See daily stay summary. In short, safety was maintained and the patient was cooperative with care. He declined a trial of antidepressant medications but accpeted prn Vistaril with benefit. A family session was held by phone with his mother and safety plan was completed prior to discharge. Aftercare is an issue as no insurance, needs to complete MA application prior to discharge. Social work will explore sliding scale with [facility] so he can begin therapy. He will have supply of prn Vistaril to hold him until able to schedule with Dr. Horton. He prefers to make his own PCP appointment when insurance is in place. Day of Discharge Assessment Today the patient voices readiness for discharge. They note improvement in mood and deny thoughts to harm self or others. Thoughts remain organized and they are improved from admission. There is no evidence of psychosis. They agree to take mediations as prescribed and keep follow-up appointments. They are stable for discharge to outpatient level of care. Transition of Care Transition Of Care Record: was reviewed with the patient Advance Directives Advance Directives Information Provided: Yes Advance Directives: No Mental Health Advance Directive: No Advance Directives on File: No Living Will: No Power of Food Porter: No Advance Directives Reason:: Declines as Mental Health Visit. Risk Factors Assessment Male: Yes : Yes Do You Have Access To A Gun?: No Mental Health Diagnoses: Yes Substance Use Disorders: No Previous Psychiatric Hospitalization: Yes Protective Factors Assessment Employed: Yes Supportive Family: Yes Tobacco Cessation at Discharge Tobacco Cessation Medication Prescribed at Discharge: Not Applicable/Non-Smoker Total Time Total Time Spent: Greater Than 30 Minutes Total Time Includes: Examination of the patient, Discharge Planning and Medication Reconciliation Discharge Data Lab Results see medical admission, LFTs remained normal, Tylenol level 40 and did not require NAC, urine tox positive for MJ. Hospital Course (1) MDD (major depressive disorder), recurrent episode: (2) Generalized anxiety disorder with panic attacks: (3) Tylenol overdose: 11/29/20--needs family meeting and aftercare, continue prn hydroxyzine. 11/28/20--Reviewed care by Dr. Shelby in italics. Continue prn hydroxyzine and Vistaril. 11/27/20--The patient was admitted to the [facility] ([facility] mental health unit) on q15 min checks (behavioral with suicide precautions) for safety. The patient will participate in group, recreational, and milieu therapies and will be offered additional individual and family sessions as clinically appropriate. At this point he would prefer not to start any medication but has found atarax helpful in the past so discussed that this was available as prn if he wishes to take it which he consented to. Mental Health & Subst Abuse Tx Therapist Name of Therapist: NA Post Discharge Appointments Smoking Cessation Counseling Tobacco Cessation Medication Prescribed at Discharge: Not Applicable/Non-Smoker Discharge Plan Discharge Items Patient Disposition: Home - Self-Care Reason For Visit: MDD Discharge Diagnosis: major depressive disorder with anxious distress Activity: Resume your previous activity Non-emergency contact: Primary Care Provider and Therapist Call non-emergency contact if: you have any medication questions and your symptoms worsen Follow-up/Referrals: Miguel Horton MD [Primary Care Provider] - Diet: Regular Addtl Attending Provider Instructions: SPECIAL CARE INSTRUCTIONS: 1. Follow through with your scheduled aftercare appointments. If unable to keep an appointment, please call to reschedule. 2. Take your medication only as prescribed. Medication should not be changed or stopped without the approval of your doctor. In the event of worsening symptoms or concerns about side effects, contact your doctor immediately. 3. Utilize new healthy coping skills, anger management skills, and stress management skills learned during your hospitalization. Journal feelings and process them with a support person. Identify stressors or situations that may result in relapse, deterioration or inappropriate behaviors and develop a plan to deal with those issues. 4. If your coping skills are ineffective and you are in crisis, contact your outpatient providers for direction. If unable to reach your providers, please call the [facility] CRISIS LINE AT , go to the [facility] walk-in center at [address], [address], [place], or go to the closest Emergency Room. 5. Avoid alcohol and un-prescribed drugs. 6. You have been provided with the Mental Health Advance Directives Pamphlet for your review. 7. Your condition is stable for discharge to outpatient level of care, but recovery is an ongoing process. Ifthoughts to harm yourself or others return, follow the safety plan developed during your stay. Planning for a safe return home includes securing weapons. Our treatment team recommends weaponsbe removed from the home until your outpatient provider reassesses your progress. In rare cases where the items themselvescannot be removed, guns and ammunitionshould be secured separatelyand keys stored by a reliable personoutside of the home. If you were admitted on an involuntary commitment, the police or other legal authorities may be involved in this process. AFTERCARE APPOINTMENTS: * Please call your insurance company prior to your scheduled appointment to confirm your aftercare providers are covered. Take your insurance information to your appointments. WHO TO CALL AND WHEN: Medical Emergencies: For questions or emergencies related to your hospital stay, please contact the Inpatient Behavioral Health Unit at [phone]. A bio medical technician is on-call 29/08 for the Behavioral Health Unit for emergencies At any time you feel your situation is an emergency, you may also call 911 immediately. Pending Studies at Discharge: No Stand-Alone Forms: [employer], Smoking Cessation Medications and DC Order Prescriptions: New hydroxyzine HCl 25 mg Tablet 25 mg PO Q4H PRN (Reason: anxiety or insomnia) Qty: 30 RF: 0 No Action No Known Home Medications RF: 0 Discharge Orders: Discharge Order (Routine); Ordered 11/30/20 Ordered By: Tigist Khan Admission Data Admit Date/Time: 11/27/20 11:46 Attending Provider: Tigist Khan Admit Provider: Ruby Shelby Primary Care Provider: Miguel Horton Coding Level of Care Code 21601 D/C day mgmt > 30 min Diagnoses MDD (major depressive disorder), recurrent episode F33.9 Generalized anxiety disorder with panic attacks F41.1; F41.0 Tylenol overdose T39.1X2A Encounter type: initial encounter Injury intent: intentional self-harm
== END 2020-11-30 15:20 | disposition home or self-care (01) | DRG 885 ==
LOC: SUATTDRO 11:46 → 3S 11:46

== ENCOUNTER 2021-08-30 07:26 | Observation (INO) ==
--- NOTE | 2021-08-30 07:41 | Emergency Department Note ---
History of Present Illness General Chief complaint: Mental Health Evaluation Stated complaint: VOLUNTARY Time Seen by Provider: 08/30/21 07:34 Source: patient, RN notes reviewed, old records reviewed and police Mode of arrival: other (Police) Limitations: no limitations History of Present Illness This patient is a 25-year-old male suffers from depression is brought in by police after he was witnessed with a garden hose in his car from his exhaust. A passerby apparently noticed this. He has been feeling depressed but thinks he is fine right now. He denies any physical complaints he said he was not in the car very long denies any headache chest pain or shortness of breath. He denies that he took any drugs or alcohol. He says he is been compliant with his depression medication and has not taken any extra or had any missed dosages. Denies any aspirin or Tylenol ingestion. Denies fever chills he had COVID a couple weeks ago but has recovered. No abdominal pain. He does not smoke he has a history of smoking marijuana in the past but says no longer. He was brought in by the police apparently voluntarily Home Medications Medication Instructions Recorded Confirmed Type No Known Home Medications 11/26/20 08/30/21 History hydroxyzine HCl 25 mg tablet 25 mg PO Q4H PRN anxiety or 11/30/20 Rx insomnia #30 tabs Allergies Allergy/AdvReac Type Severity Reaction Status Date / Time amoxicillin Allergy Mild Unknown Verified 11/26/20 12:43 Penicillins Allergy Unknown UNKNOWN Verified 11/26/20 12:43 Past Med/Surg History Medical History Anxiety and depression MDD (major depressive disorder), recurrent episode No pertinent past medical history PTSD (post-traumatic stress disorder) Tylenol overdose Surgical History No pertinent past surgical history Family History Father Bipolar disorder Schizophrenia Mother Alive and well Social History Smoking Status: Former smoker Second Hand Exposure: No; Hx Alcohol Use: Yes Alcohol type: beer Alcohol Intake Frequency: 2-4 x/Month Hx Substance Use: Yes Non-Prescribed Medications: Marijuana Last Used Substance: Unknown Preferred Language: Montenegrin Communication Ability: Effective Leather Dresser Required: No Beliefs That Will Affect Care: None marital status: Single Current Living Situation: Family current occupational status: employed current occupation: [employer] Feels Safe at Home: Yes Assistive Devices: None Review of Systems A total of 10 systems reviewed and were otherwise negative Physical Exam Vital Signs Vital Signs - 24 hr 08/30/21 07:10 08/30/21 07:39 08/30/21 09:39 Temperature 36.4 C L 36.4 C L Temperature Source Oral Oral Pulse Rate 109 H Pulse Rate [Finger] 109 H 90 Respiratory Rate 16 16 18 Blood Pressure 147/93 H Blood Pressure [Left Arm] 147/93 H 125/82 Blood Pressure Mean 111 Blood Pressure Mean [Left Arm] 111 96 Pulse Oximetry 94 94 96 Oxygen Delivery Method Room Air Sepsis Recent Fever Within 48 Hours No Sepsis New/Unexplained Change in Mental Status No Sepsis Action Taken by Nursing No Action Required General: Well developed well nourished young male who appears in no acute d istress, breathing comfortably on room air. Normal speech HEENT: Normal cephalic atraumatic. Pupils are equal round and reactive to light. Extraocular movements are intact. Oropharynx is pink with moist mucous membranes. No swelling of the mouth lips or tongue. Neck: Supple with a midline trachea. No meningeal signs or stiffness, no JVD or bruits. No Stridor. Chest: Clear to auscultation bilaterally. No wheezes or rhonchi. No increased work of breathing. Heart: Regular rate and rhythm without murmurs or gallops. Abdomen: Soft nontender, nondistended without rebound guarding or rigidity. Extremities: No cyanosis clubbing or edema. No calf tenderness or assymetry Spine/Back. Non tender to palpation. No CVA tenderness Skin: Good turgor without rashes. Neurologic exam: Cranial nerves two through 12 are intact. Motor and sensation are intact and symmetrical throughout. Psych: Normal thought process and affect. Denies homicidal ideations. He has been feeling depressed Medical Decision Making Differential Diagnosis Anxiety,Depression, suicidal ideation, toxicologic, metabolic, electrolyte or metabolic abnormality Medical Records Attestation: I reviewed the patient's medical records. Home Medications Current Medication List: was personally reviewed by me Laboratory Data Attestation: I reviewed the patient's lab results. Result diagrams: 08/30/21 07:49 08/30/21 07:49 Lab Results 08/30/21 08/30/21 08/30/21 Range/Units 07:49 07:49 07:49 WBC 6.99 (4.8-10.8) K/ul RBC 4.99 (4.63-6.08) M/uL Hgb 15.3 (14.0-18.0) g/dl Hct 43.8 (40.1-51.0) % MCV 87.8 (80.0-100.0) fL MCH 30.7 (25.0-34.0) pg MCHC 34.9 (32.0-36.0) g/dL RDW Std Deviation 42.7 (36.4-46.3) fL RDW Coeff of Avani 13.2 (11.5-14.5) % Plt Count 283 (130-400) K/uL MPV 9.7 (9.4-12.4) fL Immature Gran % (Auto) 0.6 % Neut % (Auto) 57.1 % Lymph % (Auto) 34.0 % Isabella % (Auto) 5.6 % Eos % (Auto) 2.1 % Baso % (Auto) 0.6 % Neut # (Auto) 3.99 (1.4-6.5) K/uL Lymph # (Auto) 2.38 (1.2-3.4) K/uL Isabella # (Auto) 0.39 (0.24-0.82) K/uL Eos # (Auto) 0.15 (0-0.50) K/uL Baso # (Auto) 0.04 (0-0.2) K/uL Immature Gran # (Auto) 0.04 H (0.00-0.02) K/uL Carboxyhemoglobin % THgb Sodium 140 (136-145) mmol/L Potassium 3.7 (3.5-5.1) mmol/L Chloride 104 (98-107) mmol/L Carbon Dioxide 25 (21-32) mmol/L Anion Gap 11 (3-11) BUN 12 (6-23) mg/dl Creatinine 0.83 (0.6-1.4) mg/dl Est Cr Clr Drug Dosing 156.4 ml/min Est GFR ( Amer) 143.7 ml/min Est GFR (Non-Af Amer) 124.0 ml/min BUN/Creatinine Ratio 14.5 (10-20) Glucose 99 (70-99(Fasting)) mg/dl Calcium 8.8 (8.5-10.1) mg/dl Total Bilirubin 0.5 (0.2-1.0) mg/dl AST 47 H (13-39) U/L ALT 70 H (7-52) U/L Alkaline Phosphatase 68 (34-104) U/L C-Reactive Protein (0-0.5) mg/dl Total Protein 7.5 (6.0-8.3) gm/dl Albumin 4.5 (3.4-5.0) gm/dl Globulin 3.0 (2.5-4.0) gm/dl Albumin/Globulin Ratio 1.5 (0.9-2) TSH 1.871 (0.300-4.500) uIu/ml Salicylates (3.0-30) mg/dl Acetaminophen (10-30) ug/ml Ethyl Alcohol mg/dL (<10.0) mg/dl SARS-CoV-2, RNA, NAAT (NEGATIVE) 08/30/21 08/30/21 08/30/21 Range/Units 07:49 07:49 07:49 WBC (4.8-10.8) K/ul RBC (4.63-6.08) M/uL Hgb (14.0-18.0) g/dl Hct (40.1-51.0) % MCV (80.0-100.0) fL MCH (25.0-34.0) pg MCHC (32.0-36.0) g/dL RDW Std Deviation (36.4-46.3) fL RDW Coeff of Avani (11.5-14.5) % Plt Count (130-400) K/uL MPV (9.4-12.4) fL Immature Gran % (Auto) % Neut % (Auto) % Lymph % (Auto) % Isabella % (Auto) % Eos % (Auto) % Baso % (Auto) % Neut # (Auto) (1.4-6.5) K/uL Lymph # (Auto) (1.2-3.4) K/uL Isabella # (Auto) (0.24-0.82) K/uL Eos # (Auto) (0-0.50) K/uL Baso # (Auto) (0-0.2) K/uL Immature Gran # (Auto) (0.00-0.02) K/uL Carboxyhemoglobin 1.7 % THgb Sodium (136-145) mmol/L Potassium (3.5-5.1) mmol/L Chloride (98-107) mmol/L Carbon Dioxide (21-32) mmol/L Anion Gap (3-11) BUN (6-23) mg/dl Creatinine (0.6-1.4) mg/dl Est Cr Clr Drug Dosing ml/min Est GFR ( Amer) ml/min Est GFR (Non-Af Amer) ml/min BUN/Creatinine Ratio (10-20) Glucose (70-99(Fasting)) mg/dl Calcium (8.5-10.1) mg/dl Total Bilirubin (0.2-1.0) mg/dl AST (13-39) U/L ALT (7-52) U/L Alkaline Phosphatase (34-104) U/L C-Reactive Protein (0-0.5) mg/dl Total Protein (6.0-8.3) gm/dl Albumin (3.4-5.0) gm/dl Globulin (2.5-4.0) gm/dl Albumin/Globulin Ratio (0.9-2) TSH (0.300-4.500) uIu/ml Salicylates < 3.0 L (3.0-30) mg/dl Acetaminophen < 3 L (10-30) ug/ml Ethyl Alcohol mg/dL 88.7 H (<10.0) mg/dl SARS-CoV-2, RNA, NAAT (NEGATIVE) 08/30/21 08/30/21 Range/Units 07:49 07:49 WBC (4.8-10.8) K/ul RBC (4.63-6.08) M/uL Hgb (14.0-18.0) g/dl Hct (40.1-51.0) % MCV (80.0-100.0) fL MCH (25.0-34.0) pg MCHC (32.0-36.0) g/dL RDW Std Deviation (36.4-46.3) fL RDW Coeff of Avani (11.5-14.5) % Plt Count (130-400) K/uL MPV (9.4-12.4) fL Immature Gran % (Auto) % Neut % (Auto) % Lymph % (Auto) % Isabella % (Auto) % Eos % (Auto) % Baso % (Auto) % Neut # (Auto) (1.4-6.5) K/uL Lymph # (Auto) (1.2-3.4) K/uL Isabella # (Auto) (0.24-0.82) K/uL Eos # (Auto) (0-0.50) K/uL Baso # (Auto) (0-0.2) K/uL Immature Gran # (Auto) (0.00-0.02) K/uL Carboxyhemoglobin % THgb Sodium (136-145) mmol/L Potassium (3.5-5.1) mmol/L Chloride (98-107) mmol/L Carbon Dioxide (21-32) mmol/L Anion Gap (3-11) BUN (6-23) mg/dl Creatinine (0.6-1.4) mg/dl Est Cr Clr Drug Dosing ml/min Est GFR ( Amer) ml/min Est GFR (Non-Af Amer) ml/min BUN/Creatinine Ratio (10-20) Glucose (70-99(Fasting)) mg/dl Calcium (8.5-10.1) mg/dl Total Bilirubin (0.2-1.0) mg/dl AST (13-39) U/L ALT (7-52) U/L Alkaline Phosphatase (34-104) U/L C-Reactive Protein 0.62 H (0-0.5) mg/dl Total Protein (6.0-8.3) gm/dl Albumin (3.4-5.0) gm/dl Globulin (2.5-4.0) gm/dl Albumin/Globulin Ratio (0.9-2) TSH (0.300-4.500) uIu/ml Salicylates (3.0-30) mg/dl Acetaminophen (10-30) ug/ml Ethyl Alcohol mg/dL (<10.0) mg/dl SARS-CoV-2, RNA, NAAT POSITIVE A* (NEGATIVE) MDM Narrative This patient comes in as described above. He was placed in room 85 he was brought in by police he had a suicidal thoughts/gesture/attempt. He is asymptomatic at present. I did do the normal medical clearance but also did add a carboxy hemoglobin given his mechanism however he denies any headache or shortness of breath or any other symptoms to suggest significant CO exposure and says he was in the car very long. I did order oxygen and checked a carboxyhemoglobin which came back at 1.7 and therefore the oxygen was discontinued. His COVID test did come back positive however I think this is from a previous infection as he had COVID 3 weeks ago and had 10 days off from work at the time and has been asymptomatic since. The rest of his tests were unremarkable his blood alcohol was 88. I do think that he needs to be admitted/observed given the fact that he had suicidal gesture/attempt as well as depression. Given the fact that he has positive COVID test the medical team will need to admit him as none of the psychiatric facilities will take him and he can have inpatient consultation with our 3 S. team as well Impression & Plan Depression, Suicidal ideations, Carbon monoxide exposure, Lab test positive for detection of COVID-19 virus Discharge Plan Visit Data Chief Complaint: Mental Health Evaluation Stated Complaint: VOLUNTARY ED Provider: Prem Amos Discharge Problem: Depression, Suicidal ideations, Carbon monoxide exposure, Lab test positive for detection of COVID-19 virus Forms Stand Alone Forms: My [facility], Suicide Prevention Resources Prescriptions Prescriptions: No Action No Known Home Medications hydroxyzine HCl 25 mg Tablet 25 mg PO Q4H PRN (Reason: anxiety or insomnia) Qty: 30 0RF Rx Instructions: may repeat X1 if ineffective (max 200 mg daily) Referrals Referrals: Miguel Horton MD [Primary Care Provider] -
[2021-08-30 08:11] LABS: Basophils # (auto) 0.04 K/uL (0-0.2); Basophils % (auto) 0.6 %; Eosinophils # (auto) 0.15 K/uL (0-0.50); Eosinophils % (auto) 2.1 %; Hematocrit (blood only) 43.8 % (40.1-51.0); Hemoglobin 15.3 g/dl (14.0-18.0); Immature Granulocytes # (auto) 0.04 K/uL (0.00-0.02); Immature Granulocytes % (auto) 0.6 %; Lymphocytes # (auto) 2.38 K/uL (1.2-3.4); Mean Corpuscular Hemoglobin 30.7 pg (25.0-34.0); Mean Corpuscular Hgb Conc 34.9 g/dL (32.0-36.0); Mean Corpuscular Volume 87.8 fL (80.0-100.0); Mean Platelet Volume 9.7 fL (9.4-12.4); Monocytes # (auto) 0.39 K/uL (0.24-0.82); Monocytes % (auto) 5.6 %; Neutrophils # (auto) 3.99 K/uL (1.4-6.5); Neutrophils % (auto) 57.1 %; Platelet Count 283 K/uL (130-400); RDW Coefficient of Variation 13.2 % (11.5-14.5); RDW Standard Deviation 42.7 fL (36.4-46.3); Red Blood Count 4.99 M/uL (4.63-6.08); White Blood Count 6.99 K/ul (4.8-10.8)
[2021-08-30 08:29] LABS: Albumin Globulin Ratio 1.5 (0.9-2); Albumin Level 4.5 gm/dl (3.4-5.0); BUN Creatinine Ratio 14.5 (10-20); Bilirubin,Total 0.5 mg/dl (0.2-1.0); Calcium 8.8 mg/dl (8.5-10.1); Creatinine Clr Calc Pharmacy 156.4 ml/min; Est GFR (African American) 143.7 ml/min; Potassium 3.7 mmol/L (3.5-5.1); Total Protein 7.5 gm/dl (6.0-8.3)
[2021-08-30 08:34] LABS: Acetaminophen < 3 ug/ml (10-30); Salicylate < 3.0 mg/dl (3.0-30)
--- NOTE | 2021-08-30 09:47 | History & Physical Report ---
Date of Service August 30, 2021 Assessment & Plan (1) MDD (major depressive disorder), recurrent episode: (2) Generalized anxiety disorder with panic attacks: (3) Suicidal ideations: Plan: - Admit to med surg with isolation precautions due to being COVID-19 positive - Facility for inpt psych are not willing to accept the patient due to him being covid positive. - Psych consulted - Continue hydroxyzine - Previous meds trialed include zoloft and paxil, Consider wellbutrin for depression? pt has not tried this medication before. - Follow drug profile, pending (4) COVID-19: Plan: - Maintain on contact precautions for COVID - No current symptoms - pt reports testing at home 3 weeks ago and was positive - No needs for O2 DVT ppx: -teds, ambulatory CODE: FULL Dispo: From home, likely to remain in hospital x 1-2 days History of Present Illness Chief Complaint: Depression Primary Care Provider: Miguel Horton MD This is a 25 yo M who goes by the name BERNIE, with PMHx of depression, anxiety, PTSD. Pt is found to be COVID positive today in the ER. Multiple psychiatric facilities will not accept a patient who is COVID -19 positive. Pt reports that he is positive for COVID almost 3 weeks ago, where he completed the 5 days of quarantine followed by 10 days of masking. He did this with an at home test, no formal PCR or provider evaluation at that time. He currently denies any respiratory symptoms including coughing, sneezing, runny nose, sore throat, shortness of breath, etc. He felt significantly fatigued and reports it was different compared to previous episodes of depression, and that this has been slowly improving. He denies any abdominal complaints or concerns. He has not been in contact with others since then who have tested positive for covid. He presents to ED with suicidal attempt via carbon monoxide overdose in car this morning. He was sitting in his driveway with the car turned on. Reports this was a "stupid incident" and that "it looked like he tried to kill himself". The aluminum siding mechanic showed up at his house, a passerby called, and he got out of the car on his own and did not fight police force. A 302 was issued and he figured there was no sense in fighting against it, so was brought to the ER. Today he knew he was having a bad day. He feels like he has been staying at home and keeping to himself moreso recently. He has friends who he reports are rich and feels that he can't keep up with them and the spending habits. This is one of his main stressors as he already works 40 hours per week, and feels like he cant keep up. He currently is employed at [employer]. 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 Pt reports having a girlfriend as social support, as well as his mother. He has already set up a safety plan with both of them. Girlfriend is going to lock guns away that were at her grandmothers house. He does not have guns in his residence and states he doesn't like guns, or have any plan to harm himself or others with them. He denies homicidal ideations in entirety. Pt reports he is sleeping about 7-8 hours, with an afternoon nap once a day occasionally because his girlfriend likes to nap although he doesn't necessarily like to sleep during the day/. He reports exercising here and there. He likes to draw and plays old video games for fun. He feels that he understands his emotions. Pt reports his previous psychiatrist and therapist about 5 years ago, and was required to pay $80 and could not afford it so stopped going. Previous psychiatric medications he has used includes Zoloft, Paxil and doesn't feel like they didn't work. Does take hydroxyzine for bad anxiety and reports this helps. He uses it occasionally. Previous suicide attempt with tylenol in November 2020 where he was hospitalized here at [facility] via overdose. Previous suicide attempt at age 15 . Social Hx: Highest level of education: highschool, currently participating in online IT trainings. 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 Hx of Incarceration: never Social Support/Coping skills: as above Drug use: Denies Alcohol use: a beer here and there Family Hx: father with depression , denies other psychiatric history Allergies Allergy/AdvReac Type Severity Reaction Status Date / Time amoxicillin Allergy Mild Unknown Verified 11/26/20 12:43 Penicillins Allergy Unknown UNKNOWN Verified 11/26/20 12:43 Home Medications Medication Instructions Recorded Confirmed Type hydroxyzine HCl 25 mg tablet 25 mg PO Q4H PRN anxiety or 11/30/20 08/30/21 Rx insomnia #30 tabs Past Med/Surg History Medical History Anxiety and depression MDD (major depressive disorder), recurrent episode No pertinent past medical history PTSD (post-traumatic stress disorder) Tylenol overdose Surgical History No pertinent past surgical history Family History Father Bipolar disorder Schizophrenia Mother Alive and well Social History (Updated 08/30/21 @ 11:23 by Akanksha Marin PA-C) Smoking Status: Former smoker Second Hand Exposure: No; Hx Alcohol Use: Yes Alcohol type: beer Alcohol Intake Frequency: 2-4 x/Month Hx Substance Use: Yes Non-Prescribed Medications: Marijuana Last Used Substance: Unknown Preferred Language: Yoruba Communication Ability: Effective Primary Care Nurse Practitioner Required: No Beliefs That Will Affect Care: None marital status: Single Current Living Situation: Family current occupational status: employed current occupation: [employer] Feels Safe at Home: Yes Assistive Devices: None Review of Systems Review of Systems: Constitutional: No fever, sweats or chills Eyes: No diplopia, no worsening or blurred vision ENT: normal hearing, no trouble swallowing Respiratory: No cough, sputum, dyspnea at rest or on exertion Cardiovascular: No chest pain, tightness or palpitations Abdomen: No pain, nausea, vomiting, diarrhea or constipation Musculoskeletal: No joint pain, calf pain, swelling Neurologic: No weakness, numbness/tingling, or balance problems Psychiatric: +As per HPI Skin: No rash or itch Physical Exam Physical Exam: Please refer to attending addendum as I did not see the patient in person due to being COVID-19 positive. Results & Data Results & Data ([facility]) Vital Signs (Past 12 Hours) Vital Signs Temp Pulse Pulse Resp BP BP Pulse Ox 08/30/21 07:39 36.4 C L 109 H 16 147/93 H 94 08/30/21 07:10 36.4 C L 109 H 16 147/93 H 94 O2 Del Method 08/30/21 07:39 08/30/21 07:10 Room Air Laboratory Results 08/30/21 08/30/21 08/30/21 07:49 07:49 07:49 WBC RBC Hgb Hct MCV MCH MCHC RDW Std Deviation RDW Coeff of Avani Plt Count MPV Immature Gran % (Auto) Neut % (Auto) Lymph % (Auto) Coleman % (Auto) Eos % (Auto) Baso % (Auto) Neut # (Auto) Lymph # (Auto) Coleman # (Auto) Eos # (Auto) Baso # (Auto) Immature Gran # (Auto) Carboxyhemoglobin 1.7 Sodium Potassium Chloride Carbon Dioxide Anion Gap BUN Creatinine Est Cr Clr Drug Dosing Est GFR ( Amer) Est GFR (Non-Af Amer) BUN/Creatinine Ratio Glucose Calcium Total Bilirubin AST ALT Alkaline Phosphatase C-Reactive Protein 0.62 H Total Protein Albumin Globulin Albumin/Globulin Ratio TSH Salicylates Acetaminophen Ethyl Alcohol mg/dL SARS-CoV-2, RNA, NAAT POSITIVE A* 08/30/21 08/30/21 08/30/21 07:49 07:49 07:49 WBC RBC Hgb Hct MCV MCH MCHC RDW Std Deviation RDW Coeff of Avani Plt Count MPV Immature Gran % (Auto) Neut % (Auto) Lymph % (Auto) Coleman % (Auto) Eos % (Auto) Baso % (Auto) Neut # (Auto) Lymph # (Auto) Coleman # (Auto) Eos # (Auto) Baso # (Auto) Immature Gran # (Auto) Carboxyhemoglobin Sodium Potassium Chloride Carbon Dioxide Anion Gap BUN Creatinine Est Cr Clr Drug Dosing Est GFR ( Amer) Est GFR (Non-Af Amer) BUN/Creatinine Ratio Glucose Calcium Total Bilirubin AST ALT Alkaline Phosphatase C-Reactive Protein Total Protein Albumin Globulin Albumin/Globulin Ratio TSH 1.871 Salicylates < 3.0 L Acetaminophen < 3 L Ethyl Alcohol mg/dL 88.7 H SARS-CoV-2, RNA, NAAT 08/30/21 08/30/21 07:49 07:49 WBC 6.99 RBC 4.99 Hgb 15.3 Hct 43.8 MCV 87.8 MCH 30.7 MCHC 34.9 RDW Std Deviation 42.7 RDW Coeff of Avani 13.2 Plt Count 283 MPV 9.7 Immature Gran % (Auto) 0.6 Neut % (Auto) 57.1 Lymph % (Auto) 34.0 Coleman % (Auto) 5.6 Eos % (Auto) 2.1 Baso % (Auto) 0.6 Neut # (Auto) 3.99 Lymph # (Auto) 2.38 Coleman # (Auto) 0.39 Eos # (Auto) 0.15 Baso # (Auto) 0.04 Immature Gran # (Auto) 0.04 H Carboxyhemoglobin Sodium 140 Potassium 3.7 Chloride 104 Carbon Dioxide 25 Anion Gap 11 BUN 12 Creatinine 0.83 Est Cr Clr Drug Dosing 156.4 Est GFR ( Amer) 143.7 Est GFR (Non-Af Amer) 124.0 BUN/Creatinine Ratio 14.5 Glucose 99 Calcium 8.8 Total Bilirubin 0.5 AST 47 H ALT 70 H Alkaline Phosphatase 68 C-Reactive Protein Total Protein 7.5 Albumin 4.5 Globulin 3.0 Albumin/Globulin Ratio 1.5 TSH Salicylates Acetaminophen Ethyl Alcohol mg/dL SARS-CoV-2, RNA, NAAT Code Status & VTE Plan Code Status Full code - discussed with the patient over the phone Supervising Physician Co-Signing Physician Notes Attending addendum: The patient was seen and examined in the emergency room He has major depressive disorder with the prior inpatient psychiatric care He was brought into the ER by police as he had an attempted suicidal episode as mentioned in history and physical He was noted to be COVID-positive without any symptoms On examination Lying in bed comfortably Hemodynamically stable Chest-clear to auscultate bilaterally Heart-S1, X1cothtot Abdomen-benign Extremities-negative for any edema GLUING PRESSMAN-alert, awake and oriented x3. No focal sensory and motor deficit appreciated His admission labs were reviewed Has significant psychiatric issues with possible suicidal ideation and prior history of inpatient psychiatric care Incidentally COVID 19 positive without any symptoms-no treatment needed for COVID but will need isolation for 10 days Psychiatry consulted Agree with assessment and plan as outlined above by CRISTINA Hlae Dr
[2021-08-30 11:09] LABS: Appearance Urine Clear (Clear); Bilirubin Urine Negative (Negative); Blood Urine Negative (Negative); Color Urine Yellow; Glucose Urine UA Negative (Negative); Ketones Urine Negative (Negative); Leukocyte Esterase Urine Negative (Negative); Nitrite Urine Negative (Negative); Protein Urine Negative (Negative); Specific Gravity Urine 1.016 (1.000-1.030); Urobilinogen Urine Negative (Negative); pH Urine 6.5 (4.5-7.5)
[2021-08-30] MEDS ORDERED: hydrOXYzine HCl 25 MG TAB PO PRN (11:33)
[2021-08-30 11:50] LABS: Amphetamines+Metham, Urine Neg (Neg); Barbiturates, Urine Neg (Neg); Benzodiazepine, Urine Neg (Neg); Cocaine, Urine Neg (Neg); MDMA (Ecstacy), Urine Neg (Neg); Methadone, Urine Neg (Neg); Opiate, Urine Neg (Neg); Phencyclidine, Urine Neg (Neg)
--- NOTE | 2021-08-30 12:52 | Communication Note ---
Date of Service: August 30, 2021 Please put the patient on the suicide precaution. Dr Jw beasley
--- NOTE | 2021-08-31 10:55 | Hospitalist Progress Note ---
Date of Service August 31, 2021 Assessment & Plan (1) MDD (major depressive disorder), recurrent episode: Plan: - currently reports his mood is ok - denies SI or HI this morning - open to inpatient or outpatient psychiatry follow up (2) Generalized anxiety disorder with panic attacks: Plan: - not axious at this time although with somewhat pressured speech and fidgety - otherwise, calm during my exam (3) Suicidal ideations: Plan: - Admit to med surg with isolation precautions due to being COVID-19 positive - Facility for inpt psych are not willing to accept the patient due to him being covid positive. - Psych consulted - Continue hydroxyzine - Previous meds trialed include zoloft and paxil, Consider wellbutrin for depression? pt has not tried this medication before. - Follow drug profile, negative - no SI this morning (4) COVID-19: Plan: - Maintain on contact precautions for COVID - No current symptoms - pt reports testing at home 3 weeks ago and was positive - No needs for O2 DVT ppx: -teds, ambulatory CODE: FULL Dispo: From home, likely to remain in hospital x 1-2 days Lobo Estrada MD [facility] Medicine Admission and Anticipated Discharge Date Admission Date: August 30, 2021 Subjective This is a 25 yo M who goes by the name BERNIE, with PMHx of depression, anxiety, PTSD who presented after mother called 911 due to SI and possible suicide attempt. He reports that he was feeling down yesterday and decided to sit in his car with a hose to try and kill himself. then he decided not to, went inside and his mother had already called 911. Psych consulted for evaluation. Still with persistent positive COVID despite symptomatic recovery. The patient feels better today. his mood is ok and no longer expresses SI or HI. He denies any complaints of chest pain, shortness of breath, n/v/d, abdominal pain. Review of Systems Review of Systems: Constitutional: No fever, sweats or chills Eyes: No diplopia, no worsening or blurred vision ENT: normal hearing, no trouble swallowing Respiratory: No cough, sputum, dyspnea at rest or on exertion Cardiovascular: No chest pain, tightness or palpitations Abdomen: No pain, nausea, vomiting, diarrhea or constipation Musculoskeletal: No joint pain, calf pain, swelling Neurologic: No weakness, numbness/tingling, or balance problems Psychiatric: negative SI/HI, mood ok Skin: No rash or itch Physical Exam Constitutional: WD/WN, vitals as above Eyes: PERRL, conjunctivae normal, anicteric sclerae ENMT: external ear and nose normal, oropharynx normal Neck: trachea midline, no thyromegaly Respiratory: normal respiratory effort, lungs clear to auscultation Cardiovascular: RRR, no murmur, no edema Gastrointestinal (Abdomen): normal bowel sounds, soft, nontender, no hepatosplenomegaly Musculoskeletal: no cyanosis or clubbing, extremities motor strength 5/5 Skin: no rashes, warm and dry Neurologic: patellar DTR's 2+ bilat, sensation intact and PERRL, EOMI, accommodation nl, no face palsy, no dysarthria Psychiatric: A+Ox3, euthymic affect Speech: + pressured speech (somewhat) Results & Data [facility] & [facility] Vital Signs (Past 12 Hours) Vital Signs Temp Pulse Resp BP Pulse Ox O2 Del Method 08/31/21 07:32 36.7 C 96 H 16 143/93 H 96 Room Air 08/31/21 00:49 36.5 C 71 16 134/81 98 Room Air Medications Administered Current Inpatient Medications Hydroxyzine HCl (Hydroxyzine Hcl 25 Mg Tab) 25 mg PO Q4H PRN PRN Reason: anxiety or insomnia Stop: 09/29/21 11:32
--- NOTE | 2021-08-31 12:24 | Psychiatric Consultation ---
Date of Consultation August 31, 2021 Impression / Recommendations Impression 25-year-old man with history of PTSD, depression, anxiety, prior suicide attempt, prior psychiatric hospitalizations presented after rehearsal behaviors/aborted suicide attempt via carbon monoxide poisoning admitted medically on 302 warrant due to COVID-positive status. Diagnostically consistent with MDD versus persistent depressive disorder versus cluster B traits versus adjustment reaction. Possible BPD given history of chronic SI and apparent attempt in context of argument with girlfriend. Acute risk is elevated given rehearsal behavior/aborted suicide attempt and many other chronic non- modifiable risk factors and limited insight into precipitating factors/need for treatment. Discussed medication treatment options in detail. Discussed risks, benefits and alternatives. Patient would like to start and consented to Wellbutrin for MDD. Reviewed side effects including but not limited to: GI, FARMER, elevated HR, elevated BP, lowered seizures threshold, sexual side effects, and counseled on black box warning of potential for emergence of or increased SI and need to let staff know should this occur or should they feel unsafe. Also discussed importance of seeking emergency care following discharge if this side effect occurs in the future. He confirmed no history of seizures nor history of binge eating. 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[employer]) Telehealth Telehealth Options: Telephone only For the duration of the visit, provider was performing the assessment from: The same facility as the patient After establishing a telemedicine visit, patient was: Patient was verified with two unique identifiers, Patient/authorized rep acknowledged consent and understanding and Gave permission to continue telehealth session Total Time Spent (minutes): 35 Psych History Identifying Data Hardik is a 25 yo man with a history of depression and anxiety with chronic SI who presented to the ED following rehearsal behaviors for suicide and found to be COVID+ now on a 302 warrant. Psychiatry was consulted for management of his depression and SI. Chief Complaint "This was just weird and stupid". History of Present Illness Meeting via phone due to COVID+ isolation with social work, recreation therapist and psych liason also present via speakerphone. Hardik BALLARD" presented to the ED on 08/30/21 via police after he was observed by a passerby to have hooked up a garden hose to his car's exhaust pipe in an apparent suicide attempt. He minimizes these behaviors stating he was initially going to attempt suicide but then changed his mind and aborted the attempt "I never even turned the car on and it was my mom's birthday and I thought 'what are you doing' and went inside" and then states he told his mom and then the compensation vice president came. states he never put in the hose in the car nor turned on the car, this contradicts ED documentation that car may have been briefly turned on. States again that he didn't want to follow through on the suicide attempt/rehearsal stating "on my own I stopped it and didn't continue with it, I want to do outpatient and include my girlfriend more because she's a positive support". On arrival to the ED he was found to be COVID+ and therefore was admitted medically. He was placed on a 302 warrant. He describes that's dealt with chronic depression and SI "since childhood". Currently he denies SI stating this went away quickly after the aborted attempt. He feels his depression and SI are generally improving but got bad in the context of increased stress from work and school. He notes he took "some steps personally and I would like outpatient therapy" since being in the hospital. He isn't interested in a psychiatrist, likes his PCP who he is seeing on the , but he's interested in therapy. He had his mom contact his boss to reduce his hours which he thinks will help with his mood. He cannot identify any precipitating events to his attempt but collateral from liason suggests possible precipitant of an argument with his girlfriend and per UDS on arrival possible alcohol use. He states he's made efforts over time to reduce his suicide risk and has eliminated lethal means and tylenol from his household to reduce his chronic risk. He tells me he stopped his Paxil two weeks ago "because that was making things worse". He states the suicide rehearsal behavior was very impulsive and that when police were called he willingly went to the hospital. He feels his depression is "better now" with reducing his work hours and denies SI. He can state some reasons for living such as his cat,his mom and girlfriend, likes food/eating and classes he's taking. He continues to take hydroxyzine for anxiety and this has been helpful. States he did not follow-up with outpatient psychiatric or therapy resources after his admission to [facility] in November 2020 due to issues with delays with getting insurance. He states he feels things will be different this time because he now has insurance and is motivated to do outpatient therapy. Further collateral per psych liason note from 08/30/21: "Met with patient for consult service/initial psychiatric assessment. Patient lying in bed with 1:1 at bedside. Patient is pleasant and talkative. Admitted to medical floor d/t COVID + status. Patient reports having COVID ~ 3 weeks ago, he had moderate symptoms for ~ 1 week, currently denies any symptoms. Patient initially arrived to ED via police after a neighbor seen a hose connected to his car exhaust. Patient denies this was a planned gesture, reporting it was an impulsive thought. Patient denies any current SI with plan or intent. He states "when you have been depressed since you were 14, you amalia know all the different ways". Patient reports chronic SI since childhood, he's had a SA last year and was treated on . Patient reports being inpatient at [facility] when he was a minor. Patient reports depression, complains of sadness; denies poor appetite or sleep "they are great". Patient is motivated to secure outpatient psychiatric providers. He lives with his mother who is supportive and has a girlfriend of 4 years that is also a great support. 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 He feels "money is tight" at times but feels he can get by. Patient also has concerns regarding his father who doesn't have a home, sleeps at friends houses and "isn't responsible". Patient follows with PCP, Dr. Martin. He feels very comfortable with him and would like him to manage his medications. Patient is interested in talk therapy as well. Patient report being prescribed Paxil, he does not feel it is helpful and stopped taking it ~ 2 weeks ago before going to a bachelor constitution party and not wanting to drink alcohol with it. Patient also takes hydroxyzine for anxiety, uses it sparingly and feels it is helpful. Patient is open to medication recommendations however is ambivalent d/t side effects in the past and "I have taken all the SSRI's". Patient denies excessive alcohol or substance abuse, he reports using marijuana at times but much less frequently than he used to. Patient aware the psychiatrist, SW, and TR therapist will be speaking with him tomorrow, as well as reviewing treatment plan. Patient thankful for the visit." Past Psychiatric History Current Psychiatric Diagnosis: Depression, anxiety Outpatient Services: none currently Previous Psych Admissions: [facility] 11/2020, at age 15 at the [facility] following suicide attempt via ingestion of oxycotin, and at age 17 at [facility] for depression and SI. Do You Have Access To A Gun?: No History of Previous Suicide Attempt: Yes (acetaminophen OD in 11/2021 ) Past Medication Trials: Paxil-didn't like, sertraline-thought made things worse Allergies Allergy/AdvReac Type Severity Reaction Status Date / Time amoxicillin Allergy Mild Unknown Verified 11/26/20 12:43 Penicillins Allergy Unknown UNKNOWN Verified 11/26/20 12:43 Home Medications Medication Instructions Recorded Confirmed Type hydroxyzine HCl 25 mg tablet 25 mg PO Q4H PRN anxiety or 11/30/20 08/30/21 Rx insomnia #30 tabs Family History father with schizophrenia, maternal aunt with bipolar disorder Substance Abuse History denies any substance use issues, drinks occasionally and uses cannabis occasionally Personal History Living Arrangements: Home (lives with his mom) Highest Grade Completed: Vocational Training 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[employer]) Beliefs That Will Affect Care: None Additional Comments: Has been working at [id number] Patient History Medical History Anxiety and depression MDD (major depressive disorder), recurrent episode No pertinent past medical history PTSD (post-traumatic stress disorder) Tylenol overdose Surgical History No pertinent past surgical history Family History Father Bipolar disorder Schizophrenia Mother Alive and well Social History Smoking Status: Never smoker Second Hand Exposure: No; Do You Dip or Chew Tobacco: No; Hx Alcohol Use: Yes Alcohol type: beer Alcohol Intake Frequency: 2-4 x/Month Hx Substance Use: Yes Non-Prescribed Medications: Marijuana Last Used Substance: Days (ago) Preferred Language: Georgian Communication Ability: Effective Roving Changer Required: No Beliefs That Will Affect Care: None marital status: Single Current Living Situation: Parent current occupational status: employed current occupation: [employer] Other Information That Helps Us Care for You: No Feels Safe at Home: Yes Safety Concerns: Feels Safe At This Time Assistive Devices: None Physical Exam Psychiatric: Orientation: alert and oriented x 3 Speech: normal rate/rhythm/volume of speech Mood: + depressed mood and + anxious mood Thought Process: linear/logical thought process Thought Content: reality based without delusions Suicidal Thoughts: denies suicidal thoughts Homicidal Thoughts: denies homicidal thoughts Hallucinations: no auditory hallucinations and no visual hallucinations Cognition: recent memory grossly intact, remote memory grossly intact, attention grossly intact and language grossly intact Estimated Intelligence: average estimated intelligence Insight: + limited insight Judgement: + limited judgement Vital Signs (Past 24 Hours): Last Vital Signs Temp 36.7 C 08/31/21 07:32 Pulse 96 H 08/31/21 07:32 Resp 16 08/31/21 07:32 BP 143/93 H 08/31/21 07:32 Pulse Ox 96 08/31/21 07:32 O2 Del Method 08/31/21 07:32 Review of Systems All systems reviewed & are unremarkable except as noted in HPI & below Results & Data ([facility]) Laboratory Results Normal Na, elevated AST and ALT, UDS positive for THC and Ethyl alcohol Coding Level of Care Code 36013 Inpt Consult Level 3 Diagnoses MDD (major depressive disorder), recurrent episode, moderate F33.1 Suicide attempt T14.91XA COVID-19 U07.1
[2021-08-31] MEDS ORDERED: LORazepam 1 MG in SYRINGE 0.5 ML IV PRN (13:20)
[2021-08-31] MEDS ORDERED: LORazepam 1 MG TAB PO PRN ×2 (13:20)
[2021-08-31 18:56] LABS: Marijuana Quant, GCMS Urine 242 ng/mL (<5)
--- NOTE | 2021-08-31 20:14 | Ultrasound Report ---
US liver LIMITED ABDOMEN CLINICAL HISTORY: elevated LFTs. COMPARISON: None. TECHNIQUE: Multiple grayscale and color images of the right upper quadrant of the abdomen. FINDINGS: The study is limited by overlying bowel gas. Pancreas: The imaged portion of the pancreas is within normal limits with no focal mass or peripancre atic fluid collection identified. Liver: There is diffuse increased echogenicity of the liver parenchyma characteristic of fatty infilt ration. There is evidence for fatty sparing adjacent to gallbladder fossa. There is no evidence for a focal mass. There is no intrahepatic biliary duct dilatation. The liver measures approximately 16.4 cm in greatest length. Gallbladder: The gallbladder is well distended with no evidence of cholelithiasis, wall thickening or pericholecystic edema. There is evidence for sludge within the dependent portion of the gallbladder. There was reportedly a negative sonographic Gold sign. Common Bile Duct: (CBD): It is normal in size measuring 3 mm. Inferior Vena Cava (IVC): The imaged IVC is patent. Right kidney: There is no evidence for hydronephrosis, calculus or gross renal mass. The kidney is no rmal in size. IMPRESSION: 1. Evidence for fatty infiltration of the liver with fatty sparing adjacent to the gallbladder fossa. 2. Sludge without evidence for cholelithiasis. ACT 112: Negative or not required by law. Electronically signed by: Adan Glass M.D. 08/31/2021 8:12 PM
[2021-09-01] MEDS: buPROPion XL 150 MG TABCR PO SCH (08:09)
[2021-09-01 09:47] LABS: Hemoglobin 16.2 g/dl (14.0-18.0); Mean Corpuscular Hemoglobin 30.7 pg (25.0-34.0); Mean Corpuscular Hgb Conc 35.2 g/dL (32.0-36.0); Mean Corpuscular Volume 87.1 fL (80.0-100.0); Mean Platelet Volume 9.5 fL (9.4-12.4); Platelet Count 271 K/uL (130-400); RDW Standard Deviation 40.7 fL (36.4-46.3); Red Blood Count 5.28 M/uL (4.63-6.08); White Blood Count 9.81 K/ul (4.8-10.8)
[2021-09-01 10:12] LABS: Albumin Globulin Ratio 1.5 (0.9-2); Albumin Level 4.3 gm/dl (3.4-5.0); BUN Creatinine Ratio 20.8 (10-20); Bilirubin,Total 0.5 mg/dl (0.2-1.0); C Reactive Protein 0.73 mg/dl (0-0.5); Calcium 9.9 mg/dl (8.5-10.1); Creatinine Clr Calc Pharmacy 122.5 ml/min; Est GFR (African American) 114.1 ml/min; Est GFR (Non-African American) 98.4 ml/min; Globulin 2.8 gm/dl (2.5-4.0); Potassium 4.3 mmol/L (3.5-5.1); Total Protein 7.1 gm/dl (6.0-8.3)
--- NOTE | 2021-09-01 15:07 | Psychiatric Progress Note ---
Date of Service September 01, 2021 Impression / Recommendations Impression 25-year-old man with history of PTSD, depression, anxiety, prior suicide attempt, prior psychiatric hospitalizations presented after rehearsal behaviors/aborted suicide attempt via carbon monoxide poisoning admitted m edically on 302 warrant due to COVID-positive status. Diagnostically consistent with MDD versus persistent depressive disorder versus cluster B traits versus adjustment reaction. Possible BPD given history of chronic SI and apparent attempt in context of argument with girlfriend. Acute risk is elevated given rehearsal behavior/aborted suicide attempt and many other chronic non-modifiable risk factors and limited insight into precipitating factors/need for treatment. 09/01/21: Improving insight into stressors contributing to his attempt. Continues to have some depression but mood is becoming more stable and he's been working on his safety plan. Tolerating the Wellbutrin. Social work working on establishing outpatient therapy. Reamins at high acute risk and unable to be safely managed outside of the hospital. Reviewed additional collateral from his mother which she provided to psych liason yesterday evening. (1) MDD (major depressive disorder), recurrent episode, moderate: (2) Suicide attempt: (3) COVID-19: Plan 09/01/21: Continue with Wellbutrin XL 150mg qd. Requested a journal which psych liason will provide. Treatment team update reviewed with him, ongoing multidisciplinary psychiatry team approach. 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 Chief Complaint "I'm alright". Review of Systems Notes Sleep ok "these beds aren't great but ok". Appetite is good. Subjective Subjective Met with BERNIE via telemedicine phone call with social work also present. Patient was seen & assessed and interval progress reviewed with treatment team nursing and social work. He reports he's doing "alright". He met in-person with the psjesús yu. He spoke with his PCP and got a rescheduled appointment for next week. He has been working on the behavioral health workbook and safety plan. He requested a journal which psych aimee provided. 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 Has been talking to his mom and girlfriend. Hasn't noticed any side effects with the first dose of Wellbutrin. Discussed more about alcohol use, he denies any drinking that morning but he said he may have from a pool democrat the day and night before. 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 Financially his mom can help with this work reduction. He's also trying to clean his room and is enjoying watching TV. No SI. Physical Exam Psychiatric Orientation: alert and oriented x 3 Speech: normal rate/rhythm/volume of speech Mood: + depressed mood; no anxious mood Thought Process: linear/logical thought process Thought Content: reality based without delusions Suicidal Thoughts: denies suicidal thoughts Homicidal Thoughts: denies homicidal thoughts Hallucinations: no auditory hallucinations and no visual hallucinations Cognition: recent memory grossly intact, remote memory grossly intact, attention grossly intact and language grossly intact Estimated Intelligence: average estimated intelligence Insight: + fair insight Judgement: + fair judgement Vital Signs (Past 24 Hours) Last Vital Signs Temp 36.8 C 09/01/21 07:34 Pulse 75 09/01/21 07:34 Resp 16 09/01/21 07:34 BP 132/87 09/01/21 07:34 Pulse Ox 99 09/01/21 07:34 O2 Del Method 09/01/21 07:34 Results & Data ([facility]) Laboratory Results Laboratory Results - last 24 hr 08/30/21 09/01/21 09/01/21 09:45 09:28 09:28 WBC 9.81 RBC 5.28 Hgb 16.2 Hct 46.0 MCV 87.1 MCH 30.7 MCHC 35.2 RDW Std Deviation 40.7 RDW Coeff of Avani 13.0 Plt Count 271 MPV 9.5 Sodium 139 Potassium 4.3 Chloride 106 Carbon Dioxide 25 Anion Gap 8 BUN 22 Creatinine 1.06 Est Cr Clr Drug Dosing 122.5 Est GFR ( Amer) 114.1 Est GFR (Non-Af Amer) 98.4 BUN/Creatinine Ratio 20.8 H Glucose 109 H Calcium 9.9 Total Bilirubin 0.5 AST 35 ALT 82 H Alkaline Phosphatase 66 C-Reactive Protein 0.73 H Total Protein 7.1 Albumin 4.3 Globulin 2.8 Albumin/Globulin Ratio 1.5 U Marijuana THC Carboxy 242 H Drug Screen Comment SEE NOTE Current Inpatient Medications Current Inpatient Medications: Current Inpatient Medications Bupropion HCl (Bupropion Xl 150 Mg Tabcr) 150 mg PO QAM [facility] Stop: 10/01/21 08:59 Last Admin: 09/01/21 08:09 Dose: 150 mg Hydroxyzine HCl (Hydroxyzine Hcl 25 Mg Tab) 25 mg PO Q4H PRN PRN Reason: anxiety or insomnia Stop: 09/29/21 11:32 Lorazepam 1 mg/ Syringe 1 mls @ 2 mls/min IV ONE PRN; Protocol PRN Reason: EtoH Withdrawal AWSS 6-10 Stop: 09/30/21 13:19 Lorazepam (Lorazepam 1 Mg Tab) 1 mg PO ONE PRN; Protocol PRN Reason: EtoH Withdrawal AWSS 6-10 Lorazepam (Lorazepam 1 Mg Tab) 1 - 3 mg PO UD PRN; Protocol PRN Reason: EtoH Withdrawal AWSS 6-10+ Stop: 09/30/21 13:19 Post Discharge Appointments Primary Care Physician Name Of Family Doctor: [facility] Date of Appointment with PCP: 09/08/21 Time of Appointment with PCP: 10am Provider Appointment Comment: [facility] [place]
--- NOTE | 2021-09-01 17:03 | Hospitalist Progress Note ---
Date of Service September 01, 2021 Assessment & Plan (1) MDD (major depressive disorder), recurrent episode: Plan: - currently reports his mood is ok - open to inpatient or outpatient psychiatry follow up (2) Suicide attempt: Plan: - Admit to med surg with isolation precautions due to being COVID-19 positive - Facility for inpt psych are not willing to accept the patient due to him being covid positive. - Psych consulted - Continue hydroxyzine PRN for anxiety. - Previous meds trialed include zoloft and paxil, -started Bupropion - Follow drug profile, negative - no SI this morning (3) Generalized anxiety disorder with panic attacks: Plan: -pressured speech and acting fidgety noted yesterday has resolved. Started bupropion as a new treatment. Open to this and will discuss further with his PCP, Dr. Horton (4) Elevated LFTs: Plan: Improved, RUQ US reveals fatty liver and sludge without cholelithiasis. Also had a positive alcohol screen on arrival and a resolving covid infection, all possible causes of LFT elevation. Repeat with PCP when discharged. (5) COVID-19: Plan: - Maintain on contact precautions for COVID - No current symptoms - pt reports testing at home 3 weeks ago and was positive - No needs for O2 DVT ppx: -teds, ambulatory CODE: FULL Dispo: From home, likely to remain in hospital x 1-2 days, cannot leave AMA as on 302 warrant still. Brittney Monte DO [facility] Hospitalist Admission and Anticipated Discharge Date Admission Date: August 30, 2021 Subjective This is a 25 yo M who goes by the name BERNIE, with PMHx of depression, anxiety, PTSD who presented after mother called 911 due to SI and possible suicide attempt. He reports that he was feeling down yesterday and decided to sit in his car with a hose to try and kill himself. then he decided not to, went inside and his mother had already called 911. Psych consulted for evaluation. Still with persistent positive COVID despite symptomatic recovery. The patient feels better today. his mood is ok and no longer expresses SI or HI. He denies any complaints of chest pain, shortness of breath, n/v/d, abdominal pain. Reports that he had covid 3 weeks ago and was very symptomatic at that time and is now recovered. He reports this was confirmed with a home test. He tells me that he has now formed his safety plan in preparation for discharge and appears to be in good spirits. Review of Systems Review of Systems: All systems were reviewed and negative except as indicated above. Physical Exam Physical Exam: CONSTITUTIONAL: WNWD, vitals as above, generally well- appearing EYES: normal conjunctivae, no scleral icterus, ENT: external ear and nose normal, MMM NECK: trachea midline RESPIRATORY: clear to auscultation bilaterally, no crackles, rales or wheezes, normal respiratory effort CARDIOVASCULAR: regular rate and rhythm, S1 and 2 heard without murmurs, gallops or rubs, no JVD, no peripheral edema CHEST: inspection of chest was normal GASTROINTESTINAL: soft, nontender, ND, no guarding MUSCULOSKELETAL: strength 5/5 throughout, head is normocephalic and atraumatic SKIN: warm and dry, NEUROLOGIC: CN 2-12 grossly intact, no sensory deficit, normal cognition, normal speech, no tremor PSYCHIATRIC: alert cooperative and oriented to person, place and time. Euthymic mood, makes good eye contact, language grossly intact, recent and remote memory grossly intact. Results & Data Results & Data ([facility]) Vital Signs (Past 12 Hours) Vital Signs Temp Pulse Resp BP Pulse Ox O2 Del Method 09/01/21 15:26 36.9 C 102 H 18 148/89 H 95 Room Air 09/01/21 07:34 36.8 C 75 16 132/87 99 Room Air Laboratory Results Short CBC 09/01/21 Range/Units 09:28 WBC 9.81 (4.8-10.8) K/ul Hgb 16.2 (14.0-18.0) g/dl Hct 46.0 (40.1-51.0) % Plt Count 271 (130-400) K/uL BMP 09/01/21 09:28 Sodium 139 Potassium 4.3 Chloride 106 Carbon Dioxide 25 BUN 22 Creatinine 1.06 Glucose 109 H Calcium 9.9 Liver Function 09/01/21 Range/Units 09:28 Total Bilirubin 0.5 (0.2-1.0) mg/dl AST 35 (13-39) U/L ALT 82 H (7-52) U/L Alkaline Phosphatase 66 (34-104) U/L Albumin 4.3 (3.4-5.0) gm/dl Medications Administered Current Inpatient Medications Bupropion HCl (Bupropion Xl 150 Mg Tabcr) 150 mg PO QAM DARYN Stop: 10/01/21 08:59 Last Admin: 09/01/21 08:09 Dose: 150 mg Hydroxyzine HCl (Hydroxyzine Hcl 25 Mg Tab) 25 mg PO Q4H PRN PRN Reason: anxiety or insomnia Stop: 09/29/21 11:32 Lorazepam 1 mg/ Syringe 1 mls @ 2 mls/min IV ONE PRN; Protocol PRN Reason: EtoH Withdrawal AWSS 6-10 Stop: 09/30/21 13:19 Lorazepam (Lorazepam 1 Mg Tab) 1 mg PO ONE PRN; Protocol PRN Reason: EtoH Withdrawal AWSS 6-10 Lorazepam (Lorazepam 1 Mg Tab) 1 - 3 mg PO UD PRN; Protocol PRN Reason: EtoH Withdrawal AWSS 6-10+ Stop: 09/30/21 13:19
[2021-09-02] MEDS: buPROPion XL 150 MG TABCR PO SCH (08:42)
--- NOTE | 2021-09-02 15:31 | Psychiatric Progress Note ---
Date of Service September 02, 2021 Impression / Recommendations Impression 25-year-old man with history of PTSD, depression, anxiety, prior suicide attempt, prior psychiatric hospitalizations presented after rehearsal behaviors/aborted suicide attempt via carbon monoxide poisoning admitted m edically on 302 warrant due to COVID-positive status. Diagnostically consistent with MDD versus persistent depressive disorder versus cluster B traits versus adjustment reaction. Possible BPD given history of chronic SI and apparent attempt in context of argument with girlfriend. Acute risk is elevated given rehearsal behavior/aborted suicide attempt and many other chronic non-modifiable risk factors and limited insight into precipitating factors/need for treatment. 09/02/21: Ongoing improving insight into stressors contributing to his attempt. Tolerating Wellbutin without any side effects. Psych liason to work with him on adding to his safety plan and reviewing this. Remains at high acute risk and unable to be safely managed outside of the hospital. (1) MDD (major depressive disorder), recurrent episode, moderate: (2) Suicide attempt: (3) COVID-19: Plan 09/02/21: Continue with Wellbutrin XL 150mg qd. [facility] intake has been scheduled for September 22 for 12:30pm. Psych liason to help him review and add to his safety plan. 09/01/21: Continue with Wellbutrin XL 150mg qd. Requested a journal which psych liason will provide. Treatment team update reviewed with him, ongoing multidisciplinary psychiatry team approach. 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 Chief Complaint "I'm ok". Review of Systems Notes sleep and appetite are stable Subjective Subjective Patient was seen & assessed and interval progress reviewed with treatment team nursing and social work. Some back stiffness but otherwise feeling "ok". Denies any side effects from the Wellbutrin. He's going to have his girlfriend stay with him after he leaves the hospital and has reduced his work schedule already which has removed a big stressor that he felt contributed to his SI. Discussed his safety plan which he has been working on, he agrees to continue to think about potential warning signs to help him seek help and support earlier, before potentially acting on impulsive thoughts of SI in the future. Physical Exam Psychiatric Orientation: alert and oriented x 3 Speech: normal rate/rhythm/volume of speech Mood: + depressed mood; no anxious mood Thought Process: linear/logical thought process Thought Content: reality based without delusions Suicidal Thoughts: denies suicidal thoughts Homicidal Thoughts: denies homicidal thoughts Hallucinations: no auditory hallucinations and no visual hallucinations Cognition: recent memory grossly intact, remote memory grossly intact, attention grossly intact and language grossly intact Estimated Intelligence: average estimated intelligence Insight: + fair insight Judgement: + fair judgement Vital Signs (Past 24 Hours) Last Vital Signs Temp 36.6 C 09/02/21 07:04 Pulse 85 09/02/21 07:04 Resp 16 09/02/21 07:04 BP 139/91 09/02/21 07:04 Pulse Ox 96 09/02/21 07:04 O2 Del Method 09/02/21 07:04 Results & Data ([facility]) Current Inpatient Medications Current Inpatient Medications: Current Inpatient Medications Bupropion HCl (Bupropion Xl 150 Mg Tabcr) 150 mg PO QAM [facility] Stop: 10/01/21 08:59 Last Admin: 09/02/21 08:42 Dose: 150 mg Hydroxyzine HCl (Hydroxyzine Hcl 25 Mg Tab) 25 mg PO Q4H PRN PRN Reason: anxiety or insomnia Stop: 09/29/21 11:32 Lorazepam 1 mg/ Syringe 1 mls @ 2 mls/min IV ONE PRN; Protocol PRN Reason: EtoH Withdrawal AWSS 6-10 Stop: 09/30/21 13:19 Lorazepam (Lorazepam 1 Mg Tab) 1 mg PO ONE PRN; Protocol PRN Reason: EtoH Withdrawal AWSS 6-10 Lorazepam (Lorazepam 1 Mg Tab) 1 - 3 mg PO UD PRN; Protocol PRN Reason: EtoH Withdrawal AWSS 6-10+ Stop: 09/30/21 13:19 Mental Health & Subst Abuse Tx Therapist Name of Therapist: Sesar Vazquez Therapist's Date of Therapist Appointment: 09/22/21 Time of Therapist Appointment: 12:30 PM Therapy Appointment Comment: [address], [address], [place] [address] Post Discharge Appointments Primary Care Physician Name Of Family Doctor: Rosalino Horton Primary Care Date of Appointment with PCP: 09/08/21 Time of Appointment with PCP: 10am Provider Appointment Comment: [facility]
--- NOTE | 2021-09-02 20:39 | Hospitalist Progress Note ---
Date of Service September 02, 2021 Assessment & Plan (1) MDD (major depressive disorder), recurrent episode: Plan: - currently reports his mood is ok - open to inpatient or outpatient psychiatry follow up -doing well, psych likely to remove 302 in am. Will await thoughts/disposition. -medically cleared at any point for discharge. (2) Suicide attempt: Plan: - Admit to med surg with isolation precautions due to being COVID-19 positive - Facility for inpt psych are not willing to accept the patient due to him being covid positive. - Psych consulted - Continue hydroxyzine PRN for anxiety. - Previous meds trialed include zoloft and paxil, -started Bupropion - Follow drug profile, negative - no SI this morning (3) Generalized anxiety disorder with panic attacks: Plan: -pressured speech and acting fidgety noted yesterday has resolved. Started bupropion as a new treatment. Open to this and will discuss further with his PCP, Dr. Horton (4) Elevated LFTs: Plan: Improved, RUQ US reveals fatty liver and sludge without cholelithiasis. Also had a positive alcohol screen on arrival and a resolving covid infection, all possible causes of LFT elevation. Repeat with PCP when discharged. (5) COVID-19: Plan: - Maintain on contact precautions for COVID - No current symptoms - pt reports testing at home 3 weeks ago and was positive - No needs for O2 DVT ppx: -teds, ambulatory CODE: FULL Dispo: From home, likely to remain in hospital x 1-2 days, cannot leave AMA as on 302 warrant still. Brittney Monte DO [facility] Hospitalist Admission and Anticipated Discharge Date Admission Date: August 30, 2021 Subjective This is a 25 yo M who goes by the name BERNIE, with PMHx of depression, anxiety, PTSD who presented after mother called 911 due to SI and possible suicide attempt. He reports that he was feeling down yesterday and decided to sit in his car with a hose to try and kill himself. then he decided not to, went inside and his mother had already called 911. Psych consulted for evaluation. Still with persistent positive COVID despite symptomatic recovery. FEels well toda No changes Euthymic Makes good eye contact Feels well generally Eating well Review of Systems Review of Systems: All systems were reviewed and negative except as indicated above. Physical Exam Physical Exam: CONSTITUTIONAL: WNWD, vitals as above, generally well- appearing EYES: normal conjunctivae, no scleral icterus, ENT: external ear and nose normal, MMM NECK: trachea midline RESPIRATORY: clear to auscultation bilaterally, no crackles, rales or wheezes, normal respiratory effort CARDIOVASCULAR: regular rate and rhythm, S1 and 2 heard without murmurs, gallops or rubs, no JVD, no peripheral edema CHEST: inspection of chest was normal GASTROINTESTINAL: soft, nontender, ND, no guarding MUSCULOSKELETAL: strength 5/5 throughout, head is normocephalic and atraumatic SKIN: warm and dry, NEUROLOGIC: CN 2-12 grossly intact, no sensory deficit, normal cognition, normal speech, no tremor PSYCHIATRIC: alert cooperative and oriented to person, place and time. Euthymic mood, makes good eye contact, language grossly intact, recent and remote memory grossly intact. Results & Data Results & Data ([facility]) Medications Administered Current Inpatient Medications Bupropion HCl ([facility] Xl 150 Mg Tabcr) [facility] Stop: 10/01/21 08:59 Last Admin: 09/02/21 08:42 Dose: 150 mg Hydroxyzine HCl (Hydroxyzine Hcl 25 Mg Tab) 25 mg PO Q4H PRN PRN Reason: anxiety or insomnia Stop: 09/29/21 11:32 Lorazepam 1 mg/ Syringe 1 mls @ 2 mls/min IV ONE PRN; Protocol PRN Reason: EtoH Withdrawal AWSS 6-10 Stop: 09/30/21 13:19 Lorazepam (Lorazepam 1 Mg Tab) 1 mg PO ONE PRN; Protocol PRN Reason: EtoH Withdrawal AWSS 6-10 Lorazepam (Lorazepam 1 Mg Tab) 1 - 3 mg PO UD PRN; Protocol PRN Reason: EtoH Withdrawal AWSS 6-10+ Stop: 09/30/21 13:19
[2021-09-03] MEDS: buPROPion XL 150 MG TABCR PO SCH (07:35)
--- NOTE | 2021-09-03 10:33 | Psychiatric Progress Note ---
Date of Service September 03, 2021 Impression / Recommendations Impression 25-year-old man with history of PTSD, depression, anxiety, prior suicide attempt, prior psychiatric hospitalizations presented after rehearsal behaviors/aborted suicide attempt via carbon monoxide poisoning admitted m edically on 302 warrant due to COVID-positive status. Diagnostically consistent with MDD versus persistent depressive disorder versus cluster B traits versus adjustment reaction. 09/03/21: Improvement in mood with no SI, tolerating Wellbutrin without any side effects and active participation in safety planning. Acute risk is now low and he is psychiatrically stable for discharge to outpatient level of care. He no longer meets 302 criteria and does not desire any further voluntary inpatient psychiatric treatment as he feels better and finds the medication helpful and is looking forward to starting outpatient therapy. He notes improvement in mood and anxiety. They deny thoughts of harm to self or others. Thoughts are organized and they are clinically improved from admission. There is no evidence of psychosis. They improved in the hospital with support and medication adjustments. They agree to take medications as prescribed and keep follow-up appointments. At the time of the discharge they are deemed to be stable and appropriate for outpatient level of care. They are not deemed to be at imminent risk of harm to self or others. They are aware of emergency and crisis services. Knows to call 911 or go to nearest emergency care center if in a crisis which cannot be handled as an outpatient. Acute risk is low given improvement in mood and denial of SI, lack of access to lethal means, plan to avoid substance use, hopefulness, future-oriented and reduced stressors by decreasing work hours. Chronic risk is moderate to high given psychiatric co-morbid diagnoses, periods of impulsivity, prior attempt, emotional reactivity, prior psychiatric hospitalizations, depression, history of chronic intermittent SI, cluster B triats, childhood trauma, but also with protective factors including strong social support, employed, working on vocational training, resilient and with stable romantic relationship. Counseled on ways to reduce acute and chronic risk including engaging with outpatient providers, using safety plan if needed, utilizing supports, taking medication, and using coping skills. Modifiable risk factors of SI and depression were addressed during hospitalization through development of new coping skills, reduction of stressors, safety planning, and medication adjustments. (1) MDD (major depressive disorder), recurrent episode: (2) Post traumatic stress disorder (PTSD): Plan -Safe for discharge from psychiatric standpoint -302 warrant dispositioned to outpatient care as he is now longer suicidal, mood has improved and is appropriate for outpatient level of care -Sending script for Wellbutrin XL 150mg daily, 30 day supply to his pharmacy, he'll continue with his prior to admission hydroxyzine as needed for anxiety -He has a new therapy intake at [facility] on 09/22 at 12:30pm -He completed his safety plan Risk Factors Assessment Do You Have Access To A Gun?: No Protective Factors Assessment 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 Chief Complaint "I'm good, just chillin'". Review of Systems Notes see subjective Subjective Subjective Patient was seen & assessed and interval progress reviewed with treatment team nursing and social work. BERNIE continues to report stable and good mood, no side effects from the Wellbutrin and no SI. He slept well last night and continues to have stable and good appetite. We reviewed his safety plan again and crisis resources which he feels comfortable using. Reviewed his follow-up with Dr. Fajardo and his new therapy intake at [facility] and he put both of these appointments into his phone calendar. He feels that working less is going to help keep him from developing SI again as this was the main inciting stressor and he's looking forward to having some more free time to do things he enjoys including getting back into working out at the gym. He feels well supported by his girlfriend and mother. Physical Exam Psychiatric Orientation: alert and oriented x 3 Speech: normal rate/rhythm/volume of speech Mood: no depressed mood and no anxious mood Thought Process: goal directed thought process Thought Content: reality based without delusions Suicidal Thoughts: denies suicidal thoughts Homicidal Thoughts: denies homicidal thoughts Hallucinations: no auditory hallucinations and no visual hallucinations Cognition: recent memory grossly intact, remote memory grossly intact, attention grossly intact and language grossly intact Estimated Intelligence: consistent with education level Insight: + fair insight Judgement: + fair judgement Vital Signs (Past 24 Hours) Last Vital Signs Temp 36.9 C 09/03/21 07:08 Pulse 88 09/03/21 07:08 Resp 16 09/03/21 07:08 BP 129/67 09/03/21 07:08 Pulse Ox 99 09/03/21 07:08 O2 Del Method 09/03/21 07:08 Results & Data ([facility]) Current Inpatient Medications Current Inpatient Medications: Current Inpatient Medications Bupropion HCl (Bupropion Xl 150 Mg Tabcr) 150 mg PO QAM [facility] Stop: 10/01/21 08:59 Last Admin: 09/03/21 07:35 Dose: 150 mg Hydroxyzine HCl (Hydroxyzine Hcl 25 Mg Tab) 25 mg PO Q4H PRN PRN Reason: anxiety or insomnia Stop: 09/29/21 11:32 Lorazepam 1 mg/ Syringe 1 mls @ 2 mls/min IV ONE PRN; Protocol PRN Reason: EtoH Withdrawal AWSS 6-10 Stop: 09/30/21 13:19 Lorazepam (Lorazepam 1 Mg Tab) 1 mg PO ONE PRN; Protocol PRN Reason: EtoH Withdrawal AWSS 6-10 Lorazepam (Lorazepam 1 Mg Tab) 1 - 3 mg PO UD PRN; Protocol PRN Reason: EtoH Withdrawal AWSS 6-10+ Stop: 09/30/21 13:19 Mental Health & Subst Abuse Tx Therapist Name of Therapist: Sesar Vazquez Therapist's Date of Therapist Appointment: 09/22/21 Time of Therapist Appointment: 12:30 PM Therapy Appointment Comment: [address], [address], [place] [address] Post Discharge Appointments Primary Care Physician Name Of Family Doctor: Rosalino Horton Primary Care Date of Appointment with PCP: 09/08/21 Time of Appointment with PCP: 10am Provider Appointment Comment: [facility]
--- NOTE | 2021-09-03 11:07 | Discharge Summary ---
Date of Service September 03, 2021 Admission HPI Per Admitting Provider This is a 25 yo M who goes by the name BERNIE, with PMHx of depression, anxiety, PTSD. Pt is found to be COVID positive today in the ER. Multiple psychiatric facilities will not accept a patient who is COVID -19 positive. Pt reports that he is positive for COVID almost 3 weeks ago, where he completed the 5 days of quarantine followed by 10 days of masking. He did this with an at home test, no formal PCR or provider evaluation at that time. He currently denies any respiratory symptoms including coughing, sneezing, runny nose, sore throat, shortness of breath, etc. He felt significantly fatigued and reports it was different compared to previous episodes of depression, and that this has been slowly improving. He denies any abdominal complaints or concerns. He has not been in contact with others since then who have tested positive for covid. He presents to ED with suicidal attempt via carbon monoxide overdose in car this morning. He was sitting in his driveway with the car turned on. Reports this was a "stupid incident" and that "it looked like he tried to kill himself". The transit bus operator showed up at his house, a passerby called, and he got out of the car on his own and did not fight police force. A 302 was issued and he figured there was no sense in fighting against it, so was brought to the ER. Today he knew he was having a bad day. He feels like he has been staying at home and keeping to himself moreso recently. He has friends who he reports are rich and feels that he can't keep up with them and the spending habits. This is one of his main stressors as he already works 40 hours per week, and feels like he cant keep up. He currently is employed at [employer]. 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 Pt reports having a girlfriend as social support, as well as his mother. He has already set up a safety plan with both of them. Girlfriend is going to lock guns away that were at her grandmothers house. He does not have guns in his residence and states he doesn't like guns, or have any plan to harm himself or others with them. He denies homicidal ideations in entirety. Pt reports he is sleeping about 7-8 hours, with an afternoon nap once a day occasionally because his girlfriend likes to nap although he doesn't necessarily like to sleep during the day/. He reports exercising here and there. He likes to draw and plays old video games for fun. He feels that he understands his emotions. Pt reports his previous psychiatrist and therapist about 5 years ago, and was required to pay $80 and could not afford it so stopped going. Previous psychiatric medications he has used includes Zoloft, Paxil and doesn't feel like they didn't work. Does take hydroxyzine for bad anxiety and reports this helps. He uses it occasionally. Previous suicide attempt with tylenol in November 2020 where he was hospitalized here at [facility] via overdose. Previous suicide attempt at age 15 . Social Hx: Highest level of education: highschool, currently participating in online IT trainings. 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 Hx of Incarceration: never Social Support/Coping skills: as above Drug use: Denies Alcohol use: a beer here and there Family Hx: father with depression , denies other psychiatric history Principal Diagnosis Suicide attempt Covid-19 infection Depression Discharge Exam CONSTITUTIONAL: WNWD, vitals as above, generally well-appearing EYES: normal conjunctivae, no scleral icterus, ENT: external ear and nose normal, MMM NECK: trachea midline RESPIRATORY: clear to auscultation bilaterally, no crackles, rales or wheezes, normal respiratory effort CARDIOVASCULAR: regular rate and rhythm, S1 and 2 heard without murmurs, gallops or rubs, no JVD, no peripheral edema CHEST: inspection of chest was normal GASTROINTESTINAL: soft, nontender, ND, no guarding MUSCULOSKELETAL: strength 5/5 throughout, head is normocephalic and atraumatic SKIN: warm and dry, NEUROLOGIC: CN 2-12 grossly intact, no sensory deficit, normal cognition, normal speech, no tremor PSYCHIATRIC: alert cooperative and oriented to person, place and time. Euthymic mood, makes good eye contact, language grossly intact, recent and remote memory grossly intact. Discharge Data Allergies Allergy/AdvReac Type Severity Reaction Status Date / Time amoxicillin Allergy Mild Unknown Verified 11/26/20 12:43 Penicillins Allergy Unknown UNKNOWN Verified 11/26/20 12:43 Consultations 08/30/21 09:51 ED Decision to Admit Stat 08/30/21 14:55 Consult Psychiatry Routine Ordered Studies 08/31/21 13:22 US liver Routine Hospital Course (1) MDD (major depressive disorder), recurrent episode: . (2) Suicide attempt: - Admit to med surg with isolation precautions due to being COVID-19 positive - Facility for inpt psych are not willing to accept the patient due to him being covid positive. - Psych consulted - Continue hydroxyzine PRN for anxiety. - Previous meds trialed include zoloft and paxil, -started Bupropion, SI resolved quickly after admission follow-up with outpatient therapist set up for mid September. (3) Generalized anxiety disorder with panic attacks: (4) Elevated LFTs: Improved, RUQ US reveals fatty liver and sludge without cholelithiasis. Also had a positive alcohol screen on arrival and a resolving covid infection, all possible causes of LFT elevation. Repeat with PCP when discharged. (5) COVID-19: - Maintain on contact precautions for COVID - No current symptoms - pt reports testing at home 3 weeks ago and was positive At time of discharge was ambulating and mentating at baseline and was tolerating PO. Asymptomatic from a covid-19 perspective and doing well from a depression standpoint. Sent home in stable condition with close primary care follow-up recommended. PCP appt and mental health appointments were in place prior to discharge. Total Time Total Time Spent Total Time Spent (In Minutes): 60 Discharge Plan Discharge Items Patient Disposition: Home - Self-Care Reason For Visit: COVID+, DEPRESSION, SUICIDAL IDEATION Discharge Diagnosis: Suicide attempt Covid-19 infection Depression Condition on Discharge: Good Activity: Resume your previous activity Non-emergency contact: Primary Care Provider Call non-emergency contact if: you have any medication questions and your symptoms worsen Follow-up/Referrals: Miguel Horton MD [Primary Care Provider] - 09/08/21 10:00 am (Date & Time 09/08/2021 10:00 AM Provider Miguel Horton MD Department [facility] ) Diet: Regular Addtl Attending Provider Instructions: Please take all medications as instructed on discharge list below. Please continue home isolation until you are 10 days beyond your initial symptoms onset for covid-19. After this please consider masking in public spaces and social distancing per current public health guidance. Please follow-up with your primary care provider and outpatient mental health provider soon after discharge from the hospital to ensure you are doing well on the new medication prescribed. It was a pleasure taking care of you! Please call if you have any questions or problems. You can reach a [facility] hospitalist on duty at [facility] 24 hours a day by calling [phone]. Take care of yourself. Brittney Monte DO [facility] Package Lift Operator Provider Instructions: Psychiatry SPECIAL CARE INSTRUCTIONS: 1. Follow through with your scheduled aftercare appointments. If unable to keep an appointment, please call to reschedule. 2. Take your medication only as prescribed. Medication should not be changed or stopped without the approval of your doctor. In the event of worsening symptoms or concerns about side effects, contact your doctor immediately. 3. Utilize new healthy coping skills, anger management skills, and stress management skills learned during your hospitalization. Journal feelings and process them with a support person. Identify stressors or situations that may result in relapse, deterioration or inappropriate behaviors and develop a plan to deal with those issues. 4. If your coping skills are ineffective and you are in crisis, contact your outpatient providers for direction. If unable to reach your providers, please call the [facility] CRISIS LINE AT , go to the [facility] walk-in center at [address], [address], [place], or go to the closest Emergency Room. 5. Avoid alcohol and un-prescribed drugs. 6. Your condition is stable for discharge to outpatient level of care, but recovery is an ongoing process. Ifthoughts to harm yourself or others return, follow the safety plan developed during your stay. Planning for a safe return home includes securing weapons. Our treatment team recommends weaponsbe removed from the home until your outpatient provider reassesses your progress. In rare cases where the items themselvescannot be removed, guns and ammunitionshould be secured separatelyand keys stored by a reliable personoutside of the home. AFTERCARE APPOINTMENTS: * Please call your insurance company prior to your scheduled appointment to confirm your aftercare providers are covered. Take your insurance information to your appointments. -You are scheduled to see Jenny Vazquez at [place] for therapy starting September 22 at 12:30pm. WHO TO CALL AND WHEN: [address] Su[facility] and Crisis [employer] At any time you feel your situation is an emergency, you may also call 911 immediately. Pending Studies at Discharge: No Stand-Alone Forms: My [facility] Medications and DC Order Prescriptions: New bupropion HCl 150 mg Tablet Extended Release 24 Hr 150 mg PO QAM 30 Days Qty: 30 0RF Continued hydroxyzine HCl 25 mg Tablet 25 mg PO Q4H PRN (Reason: anxiety or insomnia) Qty: 30 0RF Rx Instructions: may repeat X1 if ineffective (max 200 mg daily) Discharge Orders: Discharge Order (Routine); Ordered 09/03/21 Ordered By: Brittney Monte Admission Data Admit Date/Time: 08/30/21 10:16 Attending Provider: Brittney Monte Admit Provider: Santiago Ugarte Primary Care Provider: Miguel Horton Other Providers: Santiago Ugarte ; Ruby Shelby ; Tigist Khan ; Amy Haile Other Interventions: Discharge Summary Assessment (RN) Last Done: 09/03/21 12:14
== END 2021-09-03 13:32 | disposition home or self-care (01) ==
LOC: ED 07:26 → SUATTDRO 10:16 → EDINP 10:16 → INTOOBSV 10:16 → 3E 14:19